=== PATIENT | female | born 1995 | race Caucasian/White ===

== ENCOUNTER → 2022-06-16 09:40 | Outpatient (BNVA) | payer OTHER, SELFPAY | PROVIDERS: Family Provider Counselor Professional; Visit Provider Nurse Practitioner Women's Health | DX: Z32.00 Encounter for pregnancy test, result unknown (principal); Z34.90 Encounter for supervision of normal pregnancy, unspecified, unspecified trimester; Z3A.00 Weeks of gestation of pregnancy not specified | CPT/HCPCS: 80307; 81025; 84315; 87086 ==

== ENCOUNTER → 2022-06-30 13:45 | Outpatient (BNVA) | payer OTHER, BC, SELFPAY | PROVIDERS: Family Provider Counselor Professional; Visit Provider Obstetrics & Gynecology | DX: Z34.00 Encounter for supervision of normal first pregnancy, unspecified trimester (principal); Z3A.00 Weeks of gestation of pregnancy not specified | CPT/HCPCS: 80307; 84315; 87086 ==

== ENCOUNTER 2022-07-01 12:26 | Outpatient (CLI) | payer OTHER, BC, SELFPAY ==
[2022-07-01 13:47] LABS: Hematocrit 41.6 % (37.0-47.0); Hemoglobin 13.8 g/dL (11.5-15.3); Mean Corpuscular HGB Conc 33.2 g/dL (30.0-36.0); Mean Corpuscular Hemoglobin 29.7 pg (28.0-34.0); Mean Corpuscular Volume 89.5 fl (81-99); Mean Platelet Volume 11.1 fL (7.4-10.4); Platelet Count 356 10^3/cmm (130-400); Red Blood Count 4.65 10^6/uL (4.1-5.3); White Blood Count 11.8 10^3/uL (4.0-10.0)
[2022-07-01 14:24] LABS: Rubella IgG 238.8 IU/mL (0.0-10.0); Thyroid Stimulating Hormone 0.21 uIU/mL (0.27-4.20)
[2022-07-01 14:26] LABS: Hepatitis C Virus Antibody Non-Reactive (Nonreactive)
[2022-07-01 14:27] LABS: Hepatitis B Surface Antigen Non-Reactive (Nonreactive)
[2022-07-01 14:30] LABS: HIV 1 & 2 Antibody Non-Reactive (Non-Reactiv); HIV 1 & 2 Antigen Non-Reactive (Non-Reactiv)
[2022-07-01 14:32] LABS: Rapid Plasma Reagin Syphilis Nonreactive (Nonreactive)
== END 2022-07-01 12:27 | disposition home or self-care (01) ==
LOC: LAB 12:30
PROVIDERS: PCP Nurse Practitioner Women's Health; Visit Provider Nurse Practitioner Women's Health
DX: Z34.00 Encounter for supervision of normal first pregnancy, unspecified trimester (principal)
CPT/HCPCS: 36415; 84443; 85027; 86592; 86762; 86803; 86850; 86900; 87340; 87806

== ENCOUNTER → 2022-07-14 09:11 | Outpatient (BNVA) | payer OTHER, SELFPAY | PROVIDERS: Family Provider Counselor Professional; Visit Provider Obstetrics & Gynecology | DX: Z34.90 Encounter for supervision of normal pregnancy, unspecified, unspecified trimester (principal) | CPT/HCPCS: 84315; 84443; 87491; 87591; 87624; 87661 ==

== ENCOUNTER 2022-07-15 12:49 | Outpatient (CLI) | payer OTHER, SELFPAY ==
[2022-08-14 15:15] LABS: WHC Cystic Fibrosis NEGATIVE
== END 2022-07-15 12:50 | disposition home or self-care (01) ==
PROVIDERS: Visit Provider Obstetrics & Gynecology
DX: Z34.00 Encounter for supervision of normal first pregnancy, unspecified trimester (principal); Z3A.00 Weeks of gestation of pregnancy not specified
CPT/HCPCS: 36415

== ENCOUNTER 2022-10-04 11:09 | Outpatient (CLI) | payer OTHER, SELFPAY ==
[2022-10-04] VITALS (14 sets, daily range): BP systolic 107–142; BP diastolic 62–93; PULSE 74–99; RESP 16; TEMP 35.2–36.6; BMI 26.6
[2022-10-04 12:23] LABS: Basophils % 0.3 %; Eosinophils % 0.3 %; Hematocrit 38.5 % (37.0-47.0); Hemoglobin 12.4 g/dL (11.5-15.3); Lymphocytes # 1.7 10^3/uL (0.8-4.8); Lymphocytes % 17.8 %; Mean Corpuscular HGB Conc 32.2 g/dL (30.0-36.0); Mean Platelet Volume 11.4 fL (7.4-10.4); Monocytes # 0.5 10^3/uL (0.2-0.9); Monocytes % 5.6 %; Neutrophils # 7.13 10^3/uL (1.8-7.7); Neutrophils % 75.7 %; Nucleated Red Blood Cells % 0 %; Platelet Count 318 10^3/cmm (130-400); Red Blood Count 4.28 10^6/uL (4.1-5.3); Red Cell Distribution Width 12.5 % (12.1-15.1); White Blood Count 9.4 10^3/uL (4.0-10.0)
[2022-10-04] MEDS: lactated ringers 1,000 ML 999 ML IV (12:25)
[2022-10-04 12:31] LABS: Bilirubin Urine Neg (Negative); Blood Urine Neg (Negative); Glucose Urine UA Norm (Normal); Ketones Urine Negative (Negative); Leukocyte Esterase Urine Negative (Negative); Nitrate Urine Negative (Negative); Protein Urine Neg (Negative); Urine Appearance SL Hazy (CLEAR); Urine Color Yellow (Yellow); Urobilinogen Urine Norm (Negative); pH Urine 7 (5-7)
[2022-10-04 12:32] LABS: Squamous Epithelial Cell Urine 0-4 /hpf (0-5)
[2022-10-04 12:33] LABS: Amorphous Sediment Urine 2+ /hpf; Bacteria Urine 1+ /hpf
[2022-10-04 12:34] LABS: Add Urine Culture? No; Mucus Urine 1+ /hpf
[2022-10-04 12:41] LABS: Alanine Aminotransferase < 5 U/L (0-33); Albumin Level 3.5 g/dL (3.5-5.2); Alkaline Phosphatase 91 U/L (35-105); Anion Gap 13.3 (5-19); Aspartate Amino Transferase 11 U/L (0-32); Blood Urea Nitrogen 6 mg/dL (6-20); Calcium 8.4 mg/dL (8.5-10.5); Carbon Dioxide 21 mmol/L (22-29); Chloride 106 mmol/L (98-107); Globulin 3.1 g/dL (1.3-4.6); Glomerular Filtration Rate 151.6 mL/min (90-130); Glucose 86 mg/dL (65-115); Osmolality Calculated 279 mOsm/kg (285-295); Potassium 4.3 mmol/L (3.5-5.1); Sodium 136 mmol/L (136-145); Total Bilirubin 0.2 mg/dL (0.15-1.2); Total Protein 6.6 g/dL (6.6-8.7)
== END 2022-10-04 13:30 | disposition home or self-care (01) ==
LOC: OPOB 11:13 → OBGYN 11:16
PROVIDERS: Obstetrics & Gynecology; Visit Provider Obstetrics & Gynecology
DX: O26.899 Other specified pregnancy related conditions, unspecified trimester (principal); Z3A.00 Weeks of gestation of pregnancy not specified; R10.9 Unspecified abdominal pain
CPT/HCPCS: 36415; 59025; 80053; 81001; 85025; 99211; J7120

== ENCOUNTER → 2022-11-17 11:40 | Outpatient (BNVA) | payer OTHER, SELFPAY | PROVIDERS: Visit Provider Obstetrics & Gynecology | DX: O09.899 Supervision of other high risk pregnancies, unspecified trimester (principal); Z3A.00 Weeks of gestation of pregnancy not specified | CPT/HCPCS: 82950; 84315; 85025 ==

== ENCOUNTER 2022-12-17 07:32 | Outpatient (CLI) | payer OTHER, BC, SELFPAY ==
[2022-12-17] VITALS (10 sets, daily range): BP systolic 116–164; BP diastolic 70–104; PULSE 60–86; RESP 17; TEMP 36.4; BMI 27.9
[2022-12-17 08:48] LABS: Add Urine Microscopic? NO; Charge for UA Resulting for Rev
[2022-12-17 08:51] LABS: Bilirubin Urine Neg (Negative); Blood Urine Neg (Negative); Glucose Urine UA Norm (Normal); Ketones Urine Negative (Negative); Leukocyte Esterase Urine Negative (Negative); Nitrate Urine Negative (Negative); Protein Urine Neg (Negative); Urine Appearance Clear (CLEAR); Urine Color Light yellow (Yellow); Urobilinogen Urine Norm (Negative); pH Urine 7 (5-7)
[2022-12-17 09:02] LABS: Basophils % 0.4 %; Eosinophils # 0.1 10^3/uL (0.0-0.8); Eosinophils % 0.6 %; Lymphocytes % 18.4 %; Mean Corpuscular HGB Conc 32.7 g/dL (30-55); Mean Corpuscular Hemoglobin 28.8 pg (27-33); Mean Corpuscular Volume 88.1 fl (85-98); Mean Platelet Volume 11.7 fL (7.4-10.4); Monocytes # 0.7 10^3/uL (0.2-0.9); Neutrophils # 8.25 10^3/uL (1.8-7.7); Neutrophils % 74.4 %; Nucleated Red Blood Cells % 0 %; Platelet Count 313 10^3/cmm (157-399); Red Cell Distribution Width 12.5 % (12.1-15.1); White Blood Count 11.08 10^3/uL (3.29-11.43)
[2022-12-17 09:26] LABS: Urine Creatinine 34 mg/dL (28-217); Urine Protein Random 4 mg/dL
[2022-12-17 09:27] LABS: UPRO/UCREAT Ratio 0.12 mg/mg CR
[2022-12-17 09:34] LABS: Alanine Aminotransferase 11 U/L (0-33); Albumin Level 3.4 g/dL (3.5-5.2); Alkaline Phosphatase 163 U/L (35-105); Anion Gap 16.8 (5-19); Aspartate Amino Transferase 18 U/L (0-32); Blood Urea Nitrogen 5 mg/dL (6-20); Calcium 8.9 mg/dL (8.5-10.5); Carbon Dioxide 21 mmol/L (22-29); Chloride 103 mmol/L (98-107); Globulin 3.1 g/dL (1.3-4.6); Glomerular Filtration Rate 121.8 mL/min (90-130); Glucose 84 mg/dL (65-115); Osmolality Calculated 278 mOsm/kg (285-295); Potassium 4.8 mmol/L (3.5-5.1); Sodium 136 mmol/L (136-145); Total Bilirubin 0.2 mg/dL (0.15-1.2); Total Protein 6.5 g/dL (6.6-8.7); Uric Acid 4.8 mg/dL (2.4-5.7)
== END 2022-12-17 10:10 | disposition home or self-care (01) ==
LOC: OPOB 07:43 → OBGYN 07:44
PROVIDERS: Visit Provider Obstetrics & Gynecology
DX: O16.9 Unspecified maternal hypertension, unspecified trimester (principal); Z3A.00 Weeks of gestation of pregnancy not specified
CPT/HCPCS: 36415; 59025; 80053; 81003; 82570; 84156; 84550; 85025; 99211

== ENCOUNTER 2022-12-18 12:36 | Outpatient (CLI) | payer OTHER, BC, SELFPAY ==
[2022-12-18 13:14] LABS: Total Volume, Urine 4500 mL
== END 2022-12-18 12:37 | disposition home or self-care (01) ==
PROVIDERS: PCP Obstetrics & Gynecology; Visit Provider Obstetrics & Gynecology
DX: O16.9 Unspecified maternal hypertension, unspecified trimester (principal); Z3A.00 Weeks of gestation of pregnancy not specified
CPT/HCPCS: 84156

== ENCOUNTER 2022-12-29 11:05 | Outpatient (CLI) | payer OTHER, BC, SELFPAY ==
[2022-12-17 07:45] VITALS: RESP 17; TEMP 36.4
[2022-12-29] VITALS (13 sets, daily range): BP systolic 125–140; BP diastolic 81–100; PULSE 83–100; RESP 16; BMI 27.6
== END 2022-12-29 14:20 | disposition home or self-care (01) ==
LOC: OPOB 11:07 → OBGYN 14:10
PROVIDERS: Visit Provider Obstetrics & Gynecology
DX: O26.899 Other specified pregnancy related conditions, unspecified trimester (principal); Z3A.00 Weeks of gestation of pregnancy not specified
CPT/HCPCS: 59025; 84315; 87081; 99211

== ENCOUNTER → 2023-01-07 14:23 | Outpatient (BNVA) | payer OTHER, BC, SELFPAY | PROVIDERS: Visit Provider Obstetrics & Gynecology | DX: Z34.93 Encounter for supervision of normal pregnancy, unspecified, third trimester (principal); Z3A.37 37 weeks gestation of pregnancy | CPT/HCPCS: 76816 ==

== ENCOUNTER 2023-01-08 08:45 | Outpatient (CLI) | payer OTHER, BC, SELFPAY ==
[2023-01-08] VITALS (9 sets, daily range): BP systolic 115–135; BP diastolic 72–101; PULSE 80–91; RESP 16; BMI 27.9
[2023-01-08] MEDS: lactated ringers 1,000 ML 999 ML IV (09:36)
[2023-01-08 09:44] LABS: Basophils # 0.1 10^3/uL (0.0-0.1); Basophils % 0.6 %; Eosinophils # 0.1 10^3/uL (0.0-0.8); Eosinophils % 0.5 %; Hematocrit 39.4 % (36-47); Lymphocytes # 2.5 10^3/uL (0.8-4.8); Lymphocytes % 20.7 %; Mean Corpuscular HGB Conc 32.5 g/dL (30-55); Mean Corpuscular Hemoglobin 28.7 pg (27-33); Mean Corpuscular Volume 88.3 fl (85-98); Mean Platelet Volume 12.3 fL (7.4-10.4); Monocytes # 0.7 10^3/uL (0.2-0.9); Neutrophils # 8.67 10^3/uL (1.8-7.7); Neutrophils % 71.9 %; Nucleated Red Blood Cells % 0 %; Platelet Count 294 10^3/cmm (157-399); Red Blood Count 4.46 10^6/uL (3.85-5.65); Red Cell Distribution Width 12.8 % (12.1-15.1); White Blood Count 12.06 10^3/uL (3.29-11.43)
[2023-01-08 09:53] LABS: Bilirubin Urine Neg (Negative); Blood Urine Neg (Negative); Glucose Urine UA Norm (Normal); Ketones Urine Negative (Negative); Leukocyte Esterase Urine Negative (Negative); Nitrate Urine Negative (Negative); Protein Urine Neg (Negative); Urine Appearance Clear (CLEAR); Urine Color Colorless (Yellow); Urobilinogen Urine Norm (Negative); pH Urine 7 (5-7)
[2023-01-08 10:02] LABS: Alanine Aminotransferase 9 U/L (0-33); Albumin Level 3.8 g/dL (3.5-5.2); Alkaline Phosphatase 237 U/L (35-105); Anion Gap 18.1 (5-19); Aspartate Amino Transferase 14 U/L (0-32); Blood Urea Nitrogen 7 mg/dL (6-20); Carbon Dioxide 20 mmol/L (22-29); Chloride 104 mmol/L (98-107); Globulin 3.5 g/dL (1.3-4.6); Glucose 91 mg/dL (65-115); Osmolality Calculated 284 mOsm/kg (285-295); Potassium 4.1 mmol/L (3.5-5.1); Sodium 138 mmol/L (136-145); Total Bilirubin 0.3 mg/dL (0.15-1.2); Total Protein 7.3 g/dL (6.6-8.7); Uric Acid 5.4 mg/dL (2.4-5.7)
[2023-01-08 10:08] LABS: Add Urine Culture? No; Bacteria Urine 1+ /hpf; RBC Urine 0-4 /hpf (0-2); WBC Urine 0-4 /hpf (0-5)
[2023-01-08 10:09] LABS: Urine Creatinine 29 mg/dL (28-217)
[2023-01-08 10:15] LABS: UPRO/UCREAT Ratio 0.76 mg/mg CR; Urine Protein Random 22 mg/dL
== END 2023-01-08 10:58 | disposition home or self-care (01) ==
LOC: OPOB 08:48 → OBGYN 10:45
PROVIDERS: Visit Provider Obstetrics & Gynecology
DX: O16.9 Unspecified maternal hypertension, unspecified trimester (principal); Z3A.00 Weeks of gestation of pregnancy not specified
CPT/HCPCS: 36415; 59025; 80053; 81001; 82570; 84156; 84550; 85025; 99211; J7120

== ENCOUNTER 2023-01-10 12:35 | Outpatient (CLI) | payer OTHER, BC, SELFPAY ==
[2023-01-10 12:55] VITALS: BP 136/87; PULSE 85
[2023-01-10 12:59] VITALS: RESP 17
[2023-01-10 13:01] VITALS: BMI 27.9
[2023-01-10 13:05] LABS: Nitrazine Paper, PH Negative
[2023-01-10 13:10] VITALS: BP 131/90; PULSE 79
[2023-01-10 13:25] VITALS: BP 120/91; PULSE 90
== END 2023-01-10 13:30 | disposition home or self-care (01) ==
LOC: OPOB 12:40 → OBGYN 12:41
PROVIDERS: Visit Provider Obstetrics & Gynecology
DX: O26.899 Other specified pregnancy related conditions, unspecified trimester (principal); Z3A.00 Weeks of gestation of pregnancy not specified; N89.8 Other specified noninflammatory disorders of vagina
CPT/HCPCS: 59025; 83986; 99211

== ENCOUNTER 2023-01-15 19:00 | Inpatient (IN) | payer OTHER, BC, MEDICAID, SELFPAY ==
[2023-01-15] VITALS (63 sets, daily range): BP systolic 86–171; BP diastolic 51–113; PULSE 77–117; RESP 16; TEMP 35.9–36.6; O2SAT 97–99; BMI 27.1
[2023-01-15 11:20] LABS: Basophils # 0.1 10^3/uL (0.0-0.1); Basophils % 0.3 %; Eosinophils # 0.1 10^3/uL (0.0-0.8); Eosinophils % 0.4 %; Hematocrit 38.2 % (36-47); Lymphocytes # 1.9 10^3/uL (0.8-4.8); Lymphocytes % 11.5 %; Mean Corpuscular HGB Conc 32.7 g/dL (30-55); Mean Corpuscular Hemoglobin 28.4 pg (27-33); Mean Corpuscular Volume 86.8 fl (85-98); Monocytes # 0.8 10^3/uL (0.2-0.9); Neutrophils # 13.57 10^3/uL (1.8-7.7); Neutrophils % 82.3 %; Nucleated Red Blood Cells % 0 %; Platelet Count 290 10^3/cmm (157-399); Red Cell Distribution Width 13.1 % (12.1-15.1); White Blood Count 16.48 10^3/uL (3.29-11.43)
[2023-01-15] MEDS: dextrose 5%-lactated ringers 1,000 ML 125 ML IV (11:56)
[2023-01-15] MEDS: ampicillin 2,000 MG in sodium chloride 0.9% (plus) 50 ML 100 MG IV (11:57)
[2023-01-15] MEDS: lactated ringers 1,000 ML 999 ML IV (15:31)
--- NOTE | 2023-01-15 16:22 | ANES.PREANE2 ---
Pre-Anesthetic Assessment Height/Weight: Height 1.65 m Weight 73.936 kg Temp Pulse Resp BP O2 Del Method 96.6 F L 84 16 126/82 Room Air 01/15/23 14:34 01/15/23 15:16 01/15/23 11:13 01/15/23 15:16 01/15/23 11:00 Familial anesthetic complications: None Was Beta Sharon taken within 24 hours: N/A Was Clonidine taken within 24 hours: N/A Social No alcohol and No tobacco Exam alert, oriented x 3, clear to auscultation bilaterally and regular rate & rhythm Airway Submandibular: within normal limits Cervical ROM: within normal limits Mallampati: Class III Dentition: full History/ROS No significant history except as noted and No significant complaints Pulmonary None reported CV/HEM Palpitations (d/t anxiety) None reported Hepatic None reported GI Gastroesophageal Reflux Disease Metabolic None reported Musc/skel Lower Back Pain Neuropsych Anxiety and Depression Anesthetic Plan ASA status: 2 Anesthesia: Anesthesia Evaluation, General and Regional (specify below) (Epidural) Risk of > 500 ml blood loss (7ml/kg in children): No Medications/Allergies Home Medications Medication Instructions Recorded Confirmed Last Taken Type fluoxetine 10 mg capsule 10 mg PO DAILY 05/08/22 01/12/23 12/16/22 09:00 History famotidine 20 mg tablet (Pepcid) 20 mg PO DAILY 11/03/22 01/12/23 12/16/22 09:00 History metoclopramide HCl 5 mg tablet 5 mg PO DAILY 30 days #30 tabs 11/03/22 01/12/23 Unknown Rx (Reglan) ondansetron HCl 4 mg tablet 4 mg PO Q8H PRN nausea and 11/03/22 01/12/23 Unknown Rx vomiting #30 tabs Allergies Allergy/AdvReac Type Severity Reaction Status Date / Time No Known Allergies Allergy Verified 01/12/23 09:58 Current Medications Generic Name Dose Route Start Last Admin Trade Name Freq PRN Reason Stop Dose Admin Dextrose/Lactated Ringer's 1,000 mls @ 125 mls/hr 01/15/23 11:15 01/15/23 11:56 Dextrose 5%-Lactated Ringers IV 125 mls/hr .Q8H JAQUELINE Administration Lactated Ringer's 1,000 mls @ 999 mls/hr 01/15/23 15:20 01/15/23 15:31 Lactated Ringers IV 999 mls/hr .Q1H1M PRN Administration See label comments PFSH Anesthesia Surgical History [place] teeth extracted Family History Grandmother Breast cancer Maternal Hypertension Family/Other Breast cancer Maternal aunts, 3 Grandfather , Maternal Stroke Hypertension Grandfather Diabetes Paternal Grandmother , Paternal Diabetes Mother Hypertension Father Hypertension Denies family history of Cervical cancer Colon cancer Ovarian cancer Uterine cancer Thyroid disease Female Reproductive History : 1 Data Anesthesia 01/15/23 11:01 Short CBC 01/15/23 Range/Units 11:01 WBC 16.48 H (3.29-11.43) 10^3/uL Hgb 12.50 (11.27-16.99) g/dL Hct 38.2 (36-47) % MCV 86.8 (85-98) fl Plt Count 290 (157-399) 10^3/cmm Neut % (Auto) 82.3 % Neut # (Auto) 13.57 H (1.8-7.7) 10^3/uL Blood Bank 01/15/23 11:01 Blood Type A Positive Rho(D) Type Positive Antibody Screen Negative Cardiac Studies: No Data to Display
[2023-01-15] MEDS: ROPivacaine syringe 100 MG/50 ML SYRINGE 10 MG EPIDURAL ×2 (16:53→19:54)
--- NOTE | 2023-01-15 16:57 | ANES.PROC ---
Anesthesia Procedures Procedure/Date: 01/15/23 Epidural: Time Out Performed: Yes Consents Signed: Procedure Consent and NPO Consent Consent: requested by attending/covering physician, from patient, risks and benefits reviewed and patient agrees to proceed Lumbar Level: L3-L4 Epidural position: sitting Epidural procedure: sterile prep of area (betadine), 1% lidocaine to numb the area (3 mLs), neg for paresthesia, test dose given, 1.5% xylocaine 1:200k epi (3 mLs/ 2 mLs), 0.2% Ropivacaine bolus ml (5 mLs), placed PCEA, no systemic response, sterile dressing applied, L.U.D. no apparent complications and 0.2% Ropiavacaine @ mls/hr (13) Additional Comments: HARIS at 6cm, catheter placed to 11 cm
[2023-01-15] MEDS: ampicillin 1,000 MG in sodium chloride 0.9% (plus) 50 ML 100 MG IV ×2 (17:01→21:04)
[2023-01-15] MEDS: alum-mag-hydroxide-sime 30 mL UDC PO (20:55)
[2023-01-15] MEDS: ondansetron 2 mg/ML SDV 2 mL 4 MG IVP (23:00)
[2023-01-15] MEDS: oxytocin 30 UNIT/500 ML BAG 600 UNIT IV (23:49)
[2023-01-15] MEDS: miSOPROStol 200 mcg Tablet 800 MCG PR (23:52)
[2023-01-16] VITALS (19 sets, daily range): BP systolic 113–164; BP diastolic 65–97; PULSE 89–106; RESP 16–17; TEMP 36.7–37.7; O2SAT 97–98
--- NOTE | 2023-01-16 00:27 | PM.DELIVERY ---
Delivery Note: Date of delivery: January 16, 2023 Pre-delivery diagnoses: Term Post-delivery diagnoses: Term delivered Procedure: Spontaneous vaginal delivery Delivering Physician: Jeevan Rocha MD Estimated blood loss (mL): 500 Delivery: The patient was noted to be complete and pushing, so was placed in the dorsal lithotomy position, prepped and draped in the usual sterile fashion for a vaginal delivery. Pt. Noted to have epidural anesthesia. At 2344 the patient delivered a viable term female infant weighing 3405 g with scores of 8 and 9 at one and five minutes, respectively. The vertex was delivered spontaneously over intact perineum. The patient was asked to push and the head delivered spontaneously in the MARIBELL position, over an intact perineum. A nuchal cord was checked and none noted. The anterior shoulder delivered easily and the posterior shoulder followed. The remainder of the infant was easily delivered and the oropharynx and nasopharynx was bulb suctioned. The infant was noted to have spontaneous cry and spontaneous movement of all four extremities. The cord was clamped x 2 and cut and noted to have 2 arteries and one vein. The was passed to the mother's abdomen where nursing personnel were in attendance. Cord blood sample was then obtained. The placenta delivered intact spontaneously and the uterus was explored. 20 units of Pitocin was placed in the IV bag to firm the uterus. Examination of the cervix and vaginal vault did not reveal any lacerations. A vaginal pack was then placed. Examination of the perineum showed a second-degree laceration. The laceration was repaired with 3-0 Vicryl in the normal fashion in a running non locking fashion to reapproximate the laceration in layers. The vaginal pack was then removed. The patient tolerated this procedure well, and recovered in L&D with her in the LDR room. All sponge and needle counts were correct. History History History 1 Term 0 Miscarriages/Ectopic Living Children Coding Level of Care Code Acute Code for Chg Fwd Diagnoses
[2023-01-16] MEDS: dextrose 5%-lactated ringers 1,000 ML 125 ML IV (01:10)
[2023-01-16] MEDS: benzocaine-menthol 78 gm Canister 1 SPRAY TOPICAL (01:30)
[2023-01-16] MEDS: HYDROcodone-acetaminophen 5-325 mg Tablet PO (01:34)
[2023-01-16] MEDS: docusate sodium 100 mg Capsule PO ×2 (09:03→20:33)
[2023-01-16] MEDS: prenatal vitamin Capsule 1 CAP PO (09:03)
[2023-01-16] MEDS: ibuprofen 800 mg tablet PO ×3 (09:03→20:33)
--- NOTE | 2023-01-16 09:55 | ANE.PACU2 ---
Inpatient post-anesthesia follow up: Airway intact: Yes Vital signs: Temperature 98.4 F Pulse Rate 100 Respiratory Rate 16 Blood Pressure 123/82 Pulse Oximetry 98 Oxygen Delivery Me thod Room Air Oxygen Flow Rate Fraction of Inspir ed Oxygen Hydration adequate: Yes Nausea and vomiting: No Pain level: 2 Mental status: Baseline Additional Comments: Anes start 01/15/23 1115 Anes end 01/16/23 0102
--- NOTE | 2023-01-16 11:04 | PC.NURSE ---
worked with patient and on waking techniques, was able to wake , assisted patient to position in football hold and attempted to latch infant. Infant did open mouth a few times and breast tissue was introduced into the mouth, no suckles were noted. Patient requested that we attempt a supplemental formula feed due to not latching and being approx. 11 hours of age. Education was provided on formula (use, storage) and bottle feeding techniques. Patient positioned in an upright feeding position and offered infant the bottle nipple. did not open mouth even when encouraged with nose to chin stroke of the nipple. This RN offered to try to feed and patient stated that that would be fine. This RN positioned in upright position and offered the bottle. The infant was gently encouraged to take the nipple into mouth, this RN noted that the infant did not have a wide gape and kept lips pursed, a few swallows were noted at the beginning of the feed but no suckling. This RN withdrew the bottle and reintroduced it several times to try to get infant to latch more deeply with no success. After 15-20 minutes infant did ingest 15 mls of formula, the feeding was ended, burped and placed skin to skin with patient. Dr. Monreal ('s line crew supervisor) was notified of feeding difficulties
[2023-01-16 12:07] LABS: Hematocrit 26.4 % (36-47); Mean Corpuscular HGB Conc 33.3 g/dL (30-55); Mean Corpuscular Hemoglobin 29.2 pg (27-33); Mean Corpuscular Volume 87.7 fl (85-98); Mean Platelet Volume 11.5 fL (7.4-10.4); Platelet Count 213 10^3/cmm (157-399); Red Blood Count 3.01 10^6/uL (3.85-5.65); Red Cell Distribution Width 13.2 % (12.1-15.1); White Blood Count 14.56 10^3/uL (3.29-11.43)
[2023-01-17 04:36] VITALS: BP 121/76; PULSE 83; RESP 17; O2SAT 97
[2023-01-17 07:00] VITALS: BP 120/80; PULSE 85; RESP 18; TEMP 37.3
[2023-01-17] MEDS: docusate sodium 100 mg Capsule PO (09:01)
[2023-01-17] MEDS: prenatal vitamin Capsule 1 CAP PO (09:01)
[2023-01-17] MEDS: ibuprofen 800 mg tablet PO (09:01)
--- NOTE | 2023-01-17 10:06 | P.DS_ITS ---
Discharge Providers SEWER SEPARATION DESIGNER Date of Admission: 01/15/23 19:00 Date of Discharge: 01/17/23 Attending Provider at Admission: Jeevan Rocha MD Attending Provider at Discharge: Jeevan Rocha MD Primary SEWER SEPARATION DESIGNER: Saul Robledo MD Reason for Visit Reason for Visit: Contractions Hospital Course Hospital Course Mrs. Mercado 27-year-old female G1, P1 with an estimated gestational age at 38 weeks +4 days came to labor and delivery in active labor. She progressed to have a spontaneous vaginal delivery over second-degree laceration without complications. She delivered a term female with a birthweight of 3405 g, Apgars 8/9. and observation was uneventful. She is afebrile hemodynamically stable day 1. Tolerating diet well. Ambulating without difficulty. She was counseled regarding pelvic rest for 6 weeks (no sex, no tampons, no vaginal douches). Return to the emergency room if any fever, increased bleeding or pain. Information Peripartum Data: Infant Delivery Method: Vaginal Physical Exam Narrative: GA; alert and oriented x 3 HEENT: normal Breasts: engorged Nipples - skin intact Lungs; clear to auscultation Heart: regular rhythm, no murmurs. Abd: Appropriately tender. BS+. Uterine fundus below umbilicus. No Fundal Tenderness. Perineum: normal lochia. Extremities: no edema, no cyanosis, no tenderness. Urinary Catheter Management: Owen: Cath Placed During This Visit: yes, but has since been removed by the nurse Reason for Continuing Indwelling Catheter: Decision to DC Catheter Urinary Catheter Date of Insertion: 01/15/23 Urinary Catheter Time of Insertion: 17:34 Date Urinary Catheter Removed: 01/15/23 Time Urinary Catheter Discontinued: 23:05 History History History 1 Term 0 Miscarriages/Ectopic Living Children Discharge Data Studies Completed and Pending Laboratory Results WBC 14.56 10^3/uL (3.29-11.43) H 01/16/23 11:59 RBC 3.01 10^6/uL (3.85-5.65) L 01/16/23 11:59 Hgb 8.80 g/dL (11.27-16.99) L 01/16/23 11:59 Hct 26.4 % (36-47) L 01/16/23 11:59 MCV 87.7 fl (85-98) 01/16/23 11:59 MCH 29.2 pg (27-33) 01/16/23 11:59 MCHC 33.3 g/dL (30-55) 01/16/23 11:59 RDW 13.2 % (12.1-15.1) 01/16/23 11:59 Plt Count 213 10^3/cmm (157-399) 01/16/23 11:59 MPV 11.5 fL (7.4-10.4) H 01/16/23 11:59 Neut % (Auto) 82.3 % 01/15/23 11:01 Lymph % (Auto) 11.5 % 01/15/23 11:01 [place] % (Auto) 5.0 % 01/15/23 11:01 Eos % (Auto) 0.4 % 01/15/23 11:01 Baso % (Auto) 0.3 % 01/15/23 11:01 Neut # (Auto) 13.57 10^3/uL (1.8-7.7) H 01/15/23 11:01 Lymph # (Auto) 1.9 10^3/uL (0.8-4.8) 01/15/23 11:01 [place] # (Auto) 0.8 10^3/uL (0.2-0.9) 01/15/23 11:01 Eos # (Auto) 0.1 10^3/uL (0.0-0.8) 01/15/23 11:01 Baso # (Auto) 0.1 10^3/uL (0.0-0.1) 01/15/23 11:01 Nucleated RBC % (auto) 0 % 01/15/23 11:01 Nucleated RBCs # 0.0 /100WBC 01/15/23 11:01 Blood Type A Positive 01/15/23 11:01 Rho(D) Type Positive 01/15/23 11:01 Antibody Screen Negative 01/15/23 11:01 Vitals Last Vital Signs Temp 99.2 F 01/17/23 07:00 Pulse 85 01/17/23 07:00 Resp 18 01/17/23 07:00 BP 120/80 01/17/23 07:00 Pulse Ox 97 01/17/23 04:36 O2 Del Method Room Air 01/17/23 04:36 Results Labs OB ([facility]): Obstetrics US 01/07/23 Blood Type A Positive 01/15/23 Antibody Screen Negative 01/15/23 Hct 26.4 % (36-47) L 01/16/23 Hgb 8.80 g/dL (11.27-16.99) L 01/16/23 Rho(D) Type Positive 01/15/23 Plt Count 213 10^3/cmm (157-399) 01/16/23 Hep Bs Antigen Non-reactive (Nonreactive) 07/01/22 Hepatitis C Antibody Non-reactive (Nonreactive) 07/01/22 Rubella IgG Antibody 238.8 IU/mL (0.0-10.0) H 07/01/22 RPR Nonreactive (Nonreactive) 07/01/22 HIV 1&2 Ab & HIV 1 Ag Non-reactive (Non-Reactiv) 07/01/22 TSH 0.21 uIU/mL (0.27-4.20) L 07/01/22 Cystic Fibrosis Screen Negative 07/15/22 Gest Glucose Tolerance 132 mg/dL (70-139) 11/17/22 Uric Acid 5.4 mg/dL (2.4-5.7) 01/08/23 HCG, Qual Positive (Negative) H 06/16/22 Urine Opiates Screen Negative ng/mL (Negative) 06/30/22 Ur Barbiturates Screen Negative ng/mL (Negative) 06/30/22 Ur Phencyclidine Scrn Negative ng/mL (Negative) 06/30/22 Ur Amphetamines Screen Negative ng/mL (Negative) 06/30/22 U Benzodiazepines Scrn Negative ng/mL (Negative) 06/30/22 Urine Cocaine Screen Negative ng/mL (Negative) 06/30/22 U Marijuana (THC) Screen Negative ng/mL (Negative) 06/30/22 Micro Urine Specimen 06/30/22 Pap Smear Interpret See note 07/14/22 Discharge Plan Discharge Patient Disposition: Home Condition: Stable Prescriptions: New acetaminophen 325 mg capsule 325 mg PO Q4H PRN (Reason: fever or pain) Qty: 60 0RF docusate sodium [Colace] 100 mg capsule 100 mg PO BID Qty: 60 0RF ferrous sulfate [Iron (ferrous sulfate)] 325 mg (65 mg iron) tablet 325 mg PO BID Qty: 60 3RF ibuprofen 800 mg tablet 800 mg PO TID PRN (Reason: pain) Qty: 60 0RF Continued fluoxetine 10 mg capsule 10 mg PO DAILY famotidine [Pepcid] 20 mg tablet 20 mg PO DAILY ondansetron HCl 4 mg tablet 4 mg PO Q8H PRN (Reason: nausea and vomiting) Qty: 30 1RF metoclopramide HCl [Reglan] 5 mg tablet 5 mg PO DAILY 30 Days Qty: 30 0RF Discharge Orders: Discharge Order (Routine); Ordered 01/17/23 Ordered By: Jeevan Rocha Referrals: Jeevan Rocha MD [Physician] - 6 Weeks Discharge Diet: Usual diet Discharge Activity: Limit activity as instructed Patient Instructions: Depression (DC), Bleeding (DC), Preeclampsia and Eclampsia After Delivery (GEN), Hemorrhage (GEN), OB Discharge Report, OB Food/Drug Interaction Guide, OB Care at Home, Opioid Safety, OB Home Care, OB Vaginal Deliveries - [facility] Activity Restrictions/Additional Instructions: 1. Please call [facility] on next working day to make your appointment in 6 weeks. 2. Please stay home until you come back to the clinic on first post- hospatilization check up. 3. Please follow instructions on your medications CAREFULLY. 4. If you have abdominal incision, do not cover it unless dressing is necessary because of drainage. OK to shower, but avoid bath. Leave steri-strips until they fall off. If they are still on one week after surgery, you may remove them. 5. If you had vaginal surgery or vaginal repair, Dr. Rocha may instruct you to take SITZ bath. 6. Yellow, blood tinged odorous vaginal discharge is usually normal after hysterectomy or vaginal surgeries. 7. No SEXUAL INTERCOURSE, tampons, or douches until you are completely released from the post-operative care. 8. Avoid constipation by eating right and maybe using some Metamucil or Milk of Magnesia. 9. All prescription refills are given during the working hours. Please do no wait till it runs out. Call the clinic at [phone] before your medication runs out. The clinic will get in touch with your doctor to prescribe medications if necessary. 10. Please remain within 40 mile radius from our hospital because emergencies do happen now and then during the post-operative period. 11. If you have stairs at home, take one step at a time slowly and minimize the number of trips. It helps to stay in one floor for the next few days. No lifting except what you can lift by one hand until you are released from the post-operative care. 12. Driving is discouraged until you are well healed. It may be 3-4 weeks before you feel strong enough to drive. You should be able to turn and look through the rear window without pain and you should be able to push the brake pedal very hard without pain before you drive. No fast rules, but SAFETY should be your primary concern. DO NOT drive if you are on sedating medications such as narcotics. 13. Call the clinic (during working hours) to make urgent appointment or go to the Emergency room, if any of the following occurs: i. Vaginal bleeding becomes heavy, more than a period. ii. Incision becomes red and sore, or drains pus. iii. Your TEMPERATURE is over 100.4F or you have chill. iv. IV site becomes red and swollen (a little ``knot?? is usually OK) v. Persistent nausea and vomiting vi. Persistent constipation or diarrhea vii. Rash or allergic reaction to medications. Discharge Attestations SEWER SEPARATION DESIGNER Time Spent in Discharge Care*: greater than 30 min Coding Level of Care Code Acute Code for Chg Fwd Diagnoses
[2023-01-17 10:14] VITALS: TEMP 37.2
[2023-01-17 13:15] VITALS: BP 116/77; PULSE 85; RESP 16; TEMP 36.8
[2023-01-17 13:45] VITALS: BP 116/77; PULSE 85; RESP 16; TEMP 36.8
== END 2023-01-17 13:48 | disposition home or self-care (01) | DRG 807 ==
LOC: OPOB 01-16 00:18 → OBGYN 01-16 00:18
PROVIDERS: Admitting Provider Obstetrics & Gynecology; Visit Provider Obstetrics & Gynecology
DX: O70.1 Second degree perineal laceration during delivery (principal); Z37.0 Single live birth; Z3A.38 38 weeks gestation of pregnancy
CPT/HCPCS: 36415; 51702; 59025; 59409; 85025; 85027; 86850; 86900; 96374; 98960; 99211; J0290; J2405; J2590; J2795; J7120; J7121

== ENCOUNTER → 2023-03-10 15:49 | Outpatient (BNVA) | payer OTHER, BC, MEDICAID, SELFPAY | PROVIDERS: Visit Provider Nurse Practitioner | DX: R39.9 Unspecified symptoms and signs involving the genitourinary system (principal) | CPT/HCPCS: 81000 ==

== ENCOUNTER 2023-04-27 23:08 | Emergency (ER) | payer OTHER, BC, MEDICAID, SELFPAY ==
[2023-04-27 23:11] VITALS: BP 179/116; PULSE 113; RESP 17; TEMP 36.6; O2SAT 98; BMI 27.4
--- NOTE | 2023-04-27 23:23 | ECG_ITS ---
[facility] Test Date: 2023-04-27 Pat Name: Meredith Mercado Department: Room: Gender: Female Bioinformatics Associate: : 1995 Requested By: Leo Alcaraz Order Number: [id number] Michael MD: Obi Mccarty M.D. Measurements Intervals Kathryn Rate: 117 P: 70 DC: 172 QRS: 49 QRSD: 89 T: 45 QT: 329 QTc: 460 Interpretive Statements SINUS TACHYCARDIA MODERATE ST DEPRESSION [0.05+ mV ST DEPRESSION] No previous ECG available for comparison Electronically Signed On 04-28-2023 9:56:38 TURFGRASS MANAGEMENT PROFESSOR by Obi Mccarty M.D. [email or web address]
--- NOTE | 2023-04-27 23:23 | CTR_ITS ---
PROCEDURE INFORMATION: Exam: CT Head Without Contrast Exam date and time: 04/28/2023 12:02 AM Age: 27 years old Clinical indication: Pain; Patient HX: Patient says she noticed her vison getting blurry awhile looking at her phone and noticed headache on right side of head. She said she panicked and took her blood pressure which was higher than normal. ; Additional info: Right side headache, HTN, vision changes TECHNIQUE: Imaging protocol: Computed tomography of the head without contrast. Radiation optimization: All CT scans at this facility use at least one of these dose optimization techniques: automated exposure control; mA and/or kV adjustment per patient size (includes targeted exams where dose is matched to clinical indication); or iterative reconstruction. COMPARISON: No relevant prior studies available. RADIATION DOSE METRICS: Total DLP (mGy-cm): 1011 FINDINGS: Brain: Normal. No hemorrhage. Unremarkable white matter. No mass effect. Cerebral ventricles: No ventriculomegaly. Paranasal sinuses: There is mucosal disease of the right maxillary sinus. Mastoid air cells: Visualized mastoid air cells are well aerated. Bones/joints: Unremarkable. No acute fracture. Soft tissues: Unremarkable. CT/CT head wo con* 15210 IMPRESSION: No large territorial infarct or intracranial bleed.
[2023-04-27 23:30] VITALS: BP 165/98; PULSE 105; O2SAT 95
[2023-04-27 23:43] LABS: Basophils # 0.1 10^3/uL (0.0-0.1); Basophils % 0.5 %; Eosinophils # 0.2 10^3/uL (0.0-0.8); Eosinophils % 1.6 %; Hematocrit 41.2 % (36-47); Lymphocytes # 4.3 10^3/uL (0.8-4.8); Lymphocytes % 43.7 %; Mean Corpuscular Hemoglobin 27.4 pg (27-33); Mean Corpuscular Volume 85.7 fl (85-98); Mean Platelet Volume 10.9 fL (7.4-10.4); Monocytes # 0.8 10^3/uL (0.2-0.9); Monocytes % 8.3 %; Neutrophils # 4.47 10^3/uL (1.8-7.7); Neutrophils % 45.7 %; Nucleated Red Blood Cells % 0 %; Platelet Count 454 10^3/cmm (157-399); Red Blood Count 4.81 10^6/uL (3.85-5.65); Red Cell Distribution Width 15.4 % (12.1-15.1); White Blood Count 9.79 10^3/uL (3.29-11.43)
[2023-04-27] MEDS: LORazepam 2 mg/mL INJ 10 mL MDV 1 MG IVP (23:48)
[2023-04-28] VITALS: PULSE 102; O2SAT 92
--- NOTE | 2023-04-28 00:07 | W.ED.RECABL ---
HPI - Recheck/Abnormal Lab/Rx General: Chief Complaint: Recheck/Abnormal Lab/Rx Stated Complaint: bp high Time Seen by Provider: 04/27/23 23:23 History of Present Illness: Patient presents to the ER with complaints of high blood pressure, high heart rate and sudden onset splitting right-sided headache. Patient does states she has anxiety and did not take her anxiety medicine today and her high blood pressure and high heart rates with making this worse and causing her to have a panic attack. Review of Systems General: Reports: 10 or more systems reviewed and unremarkable except in HPI and below PFSH ED PFSH: Surgical History [place] teeth extracted Family History Grandmother Breast cancer Maternal Hypertension Family/Other Breast cancer Maternal aunts, 3 Grandfather , Maternal Stroke Hypertension Grandfather Diabetes Paternal Grandmother , Paternal Diabetes Mother Hypertension Father Hypertension Denies family history of Cervical cancer Colon cancer Ovarian cancer Uterine cancer Thyroid disease Physical Exam Const: COMMON NORMALS: no acute distress, average body habitus, patient oriented x3, no limitations, healthy appearing, alert and well nourished HENMT: COMMON NORMALS: normocephalic, atraumatic, hearing grossly normal bilaterally, external ears normal, moist oral mucous membranes and oropharynx normal HEAD & SCALP: normocephalic and atraumatic EXTERNAL EAR: Yes external ears normal Eye: COMMON NORMALS: Equal, round and reactive pupils present, EOMs intact bilaterally, conjunctivae normal and no scleral icterus CONJUNCTIVA: Yes conjunctivae normal PUPIL: Yes Equal, round and reactive pupils present Neck/C-Spine: COMMON NORMALS: full ROM, no lymphadenopathy, supple, no meningeal signs, no JVD and Thyroid normal THYROID: Thyroid normal Chest: COMMONS NORMALS: normal inspection of the chest and normal palpation of entire chest wall Resp: COMMON NORMALS: normal respiratory effort, No retractions, No use of accessory muscles and clear to auscultation bilaterally AUSCULTATION: clear to auscultation bilaterally Cardio: COMMON NORMALS: no JVD, regular rate, regular rhythm, S1 normal heart sound present, S2 normal heart sound present, No gallops present (Cardio), No clicks present (Cardio), No murmurs present (Cardio) and No rub (Cardio) RATE: regular rate RHYTHM: regular rhythm HEART SOUNDS: S1 normal heart sound present and S2 normal heart sound present GI: COMMON NORMALS: Normal to inspection, nondistended, normoactive bowel sounds present, Soft to palpation, non-tender, No hepatosplenomegaly present and no masses PALPATION: Yes Soft to palpation and Yes No hepatosplenomegaly present Neuro: COMMON NORMALS: patient oriented x3 SENSORIUM/ORIENTATION: Yes alert MENINGEAL SIGNS: Yes no meningeal signs Course Vital Signs: Vital signs: Vital Signs Temperature 97.9 F 04/27/23 23:11 Pulse Rate 93 04/28/23 01:20 Respiratory Rate 17 04/27/23 23:11 Blood Pressure 135/86 04/28/23 01:20 Pulse Oximetry 97 04/28/23 01:20 Oxygen Delivery Me thod Room Air 04/28/23 01:20 MDM - Recheck/Abnormal Lab/Rx Medical Decision Making Patient physical exam and lab work performed in ER as well as head CT all of which were essentially benign. During the patient's ER stay she was given 1 mg Ativan IV which calm her down which lowered her blood pressure and her heart rate. Patient was feeling much better. Patient will be discharged home. Patient is to follow-up with her PCP for further evaluation within 7 to 10 days. Differential Diagnosis Unlikely encounter for medication refill, encounter for wound recheck, encounter for recheck of burn, encounter for removal of sutures or warfarin-induced coagulopathy Medical Records I reviewed the patient's medical records. Lab Data I reviewed the patient's lab results. 04/27/23 23:19 04/27/23 00:[address] 04/27/23 23:23 IMPRESSION: No large territorial infarct or intracranial bleed. Laboratory Results WBC 9.79 10^3/uL (3.29-11.43) 04/27/23 23:19 RBC 4.81 10^6/uL (3.85-5.65) 04/27/23 23:19 Hgb 13.20 g/dL (11.27-16.99) 04/27/23 23:19 Hct 41.2 % (36-47) 04/27/23 23:19 MCV 85.7 fl (85-98) 04/27/23 23:19 MCH 27.4 pg (27-33) 04/27/23 23:19 MCHC 32.0 g/dL (30-55) 04/27/23 23:19 RDW 15.4 % (12.1-15.1) H 04/27/23 23:19 Plt Count 454 10^3/cmm (157-399) H 04/27/23 23:19 MPV 10.9 fL (7.4-10.4) H 04/27/23 23:19 Neut % (Auto) 45.7 % 04/27/23 23:19 Lymph % (Auto) 43.7 % 04/27/23 23:19 [place] % (Auto) 8.3 % 04/27/23 23:19 Eos % (Auto) 1.6 % 04/27/23 23:19 Baso % (Auto) 0.5 % 04/27/23 23:19 Neut # (Auto) 4.47 10^3/uL (1.8-7.7) 04/27/23 23:19 Lymph # (Auto) 4.3 10^3/uL (0.8-4.8) 04/27/23 23:19 [place] # (Auto) 0.8 10^3/uL (0.2-0.9) 04/27/23 23:19 Eos # (Auto) 0.2 10^3/uL (0.0-0.8) 04/27/23 23:19 Baso # (Auto) 0.1 10^3/uL (0.0-0.1) 04/27/23 23:19 Nucleated RBC % (auto) 0 % 04/27/23 23:19 Nucleated RBCs # 0.0 /100WBC 04/27/23 23:19 Sodium 143 mmol/L (136-145) 04/27/23 00:19 Potassium 3.6 mmol/L (3.5-5.1) 04/27/23 00:19 Chloride 108 mmol/L (98-107) H 04/27/23 00:19 Carbon Dioxide 24 mmol/L (22-29) 04/27/23 00:19 Anion Gap 14.6 (5-19) 04/27/23 00:19 BUN 10 mg/dL (6-20) 04/27/23 00:19 Creatinine 0.7 mg/dL (0.5-0.9) 04/27/23 00:19 GFR Calculation 102.0 mL/min (90-130) 04/27/23 00:19 Glucose 125 mg/dL (65-115) H 04/27/23 00:19 Calculated Osmolality 297 mOsm/kg (285-295) H 04/27/23 00:19 Calcium 9.5 mg/dL (8.5-10.5) 04/27/23 00:19 Total Bilirubin 0.2 mg/dL (0.15-1.2) 04/27/23 00:19 AST 14 U/L (0-32) 04/27/23 00:19 ALT 13 U/L (0-33) 04/27/23 00:19 Alkaline Phosphatase 121 U/L (35-105) H 04/27/23 00:19 Total Protein 7.0 g/dL (6.6-8.7) 04/27/23 00:19 Albumin 4.0 g/dL (3.5-5.2) 04/27/23 00:19 Globulin 3.0 g/dL (1.3-4.6) 04/27/23 00:19 Urine Color Yellow (Yellow) 04/27/23 23:49 Urine Appearance Sl hazy (CLEAR) A 04/27/23 23:49 Urine pH 7 (5-7) 04/27/23 23:49 Ur Specific [place] 1.010 (1.005-1.030) 04/27/23 23:49 Urine Protein Neg (Negative) 04/27/23 23:49 Urine Glucose (UA) Norm (Normal) 04/27/23 23:49 Urine Ketones Negative (Negative) 04/27/23 23:49 Urine Blood Neg (Negative) 04/27/23 23:49 Urine Nitrate Negative (Negative) 04/27/23 23:49 Urine Bilirubin Neg (Negative) 04/27/23 23:49 Urine Urobilinogen Norm mg/dL (Negative) 04/27/23 23:49 Ur Leukocyte Esterase 2+ (Negative) H 04/27/23 23:49 Urine RBC None /hpf (0-2) 04/27/23 23:49 Urine WBC 5-10 /hpf (0-5) H 04/27/23 23:49 Ur Squamous Epith Cells 15-25 /hpf (0-5) H 04/27/23 23:49 Amorphous Sediment Not Reportable 04/27/23 23:49 Urine Bacteria 1+ /hpf (NONE) H 04/27/23 23:49 Urine Opiates Screen Negative ng/mL (Negative) 04/27/23 23:49 Ur Barbiturates Screen Negative ng/mL (Negative) 04/27/23 23:49 Ur Phencyclidine Scrn Negative ng/mL (Negative) 04/27/23 23:49 Ur Amphetamines Screen Negative ng/mL (Negative) 04/27/23 23:49 U Benzodiazepines Scrn Negative ng/mL (Negative) 04/27/23 23:49 Urine Cocaine Screen Negative ng/mL (Negative) 04/27/23 23:49 U Marijuana (THC) Screen Negative ng/mL (Negative) 04/27/23 23:49 All radiology interpretation(s) finalized by discharge EKG Data EKG 1: I personally reviewed and interpreted this EKG as follows: EKG interpretation date: 04/27/23 EKG interpretation time: 23:20 Prior EKG tracings: not available for review Interpretation: EKG shows ventricular rate 117 bpm, ME interval 172, QRS duration 89, QTc of 398, sinus tachycardia moderate ST depression, Discharge Plan Discharge Patient Disposition: Home Clinical Impression: Anxiety, Tachycardia Headache Qualifiers: Headache type: unspecified Headache chronicity pattern: acute headache Intractability: not intractable Qualified Code(s): R51.9 - Headache, unspecified High blood pressure Qualifiers: Hypertension type: unspecified Qualified Code(s): I10 - Essential (primary) hypertension Condition: Stable Prescriptions: No Action norethindrone-e.estradiol-iron [ ()] 1.5 mg-30 mcg (21)/75 mg (7) tablet 1 tab PO DAILY Qty: 84 4RF fluconazole 150 mg tablet 150 mg PO Q3D Qty: 2 0RF Rx Instructions: may repeat second dose 72 hrs after first dose if symptoms persist fluoxetine 10 mg capsule 10 mg PO DAILY famotidine [Pepcid] 20 mg tablet 20 mg PO DAILY ondansetron HCl 4 mg tablet 4 mg PO Q8H PRN (Reason: nausea and vomiting) Qty: 30 1RF metoclopramide HCl [Reglan] 5 mg tablet 5 mg PO DAILY 30 Days Qty: 30 0RF acetaminophen 325 mg capsule 325 mg PO Q4H PRN (Reason: fever or pain) Qty: 60 0RF ibuprofen 800 mg tablet 800 mg PO TID PRN (Reason: pain) Qty: 60 0RF Colace 100 mg capsule 100 mg PO BID Qty: 60 0RF Iron (ferrous sulfate) 325 mg (65 mg iron) tablet 325 mg PO BID Qty: 60 3RF Discharge Orders: Discharge ED (Routine); Ordered 04/28/23 Ordered By: Leo Alcaraz Patient Instructions: Hypertension, Anxiety (ED), General Headache (ED), Tachycardia (ED) Activity Restrictions/Additional Instructions: Your workup in ER did not show any acute causes of your high blood pressure, tachycardia or headache other than anxiety. Please follow-up with your family practice physician within the next 7 to 10 days for further evaluation and treatment. 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
[2023-04-28 00:08] LABS: Add Urine Microscopic? YES; Amphetamines Screen Urine Negative (Negative); Barbiturates Screen Urine Negative (Negative); Benzodiazepines Screen Urine Negative (Negative); Bilirubin Urine Neg (Negative); Blood Urine Neg (Negative); Cocaine Screen Urine Negative (Negative); Glucose Urine UA Norm (Normal); Ketones Urine Negative (Negative); Leukocyte Esterase Urine 2+ (Negative); Nitrate Urine Negative (Negative); Opiate Screen Urine Negative (Negative); PCP Screen Urine Negative (Negative); Protein Urine Neg (Negative); THC Screen Urine Negative (Negative); Urine Appearance SL Hazy (CLEAR); Urine Color Yellow (Yellow); Urobilinogen Urine Norm (Negative); pH Urine 7 (5-7)
[2023-04-28 00:09] LABS: Add Urine Culture? No; Bacteria Urine 1+ /hpf; Squamous Epithelial Cell Urine 15-25 /hpf (0-5)
[2023-04-28 00:15] VITALS: BP 151/96; PULSE 87; O2SAT 98
[2023-04-28 00:40] LABS: Alanine Aminotransferase 13 U/L (0-33); Alkaline Phosphatase 121 U/L (35-105); Anion Gap 14.6 (5-19); Aspartate Amino Transferase 14 U/L (0-32); Blood Urea Nitrogen 10 mg/dL (6-20); Calcium 9.5 mg/dL (8.5-10.5); Carbon Dioxide 24 mmol/L (22-29); Chloride 108 mmol/L (98-107); Creatinine Clr Calc Pharmacy 124.3931; Glucose 125 mg/dL (65-115); Osmolality Calculated 297 mOsm/kg (285-295); Potassium 3.6 mmol/L (3.5-5.1); Sodium 143 mmol/L (136-145); Total Bilirubin 0.2 mg/dL (0.15-1.2)
[2023-04-28 01:00] VITALS: BP 134/86; PULSE 99; O2SAT 99
[2023-04-28 01:20] VITALS: BP 135/86; PULSE 93; O2SAT 97
== END 2023-04-28 01:39 | disposition home or self-care (01) ==
PROVIDERS: Emergency Provider Emergency Medicine
DX: I10 Essential (primary) hypertension (principal); R51.9 Headache, unspecified; F41.9 Anxiety disorder, unspecified; R00.0 Tachycardia, unspecified
CPT/HCPCS: 70450; 80053; 80306; 81001; 81003; 85025; 93005; 96374; 99285; J2060

== ENCOUNTER 2023-09-07 06:35 | Outpatient (CLI) | payer BC, MEDICAID, SELFPAY ==
--- NOTE | 2023-09-07 06:40 | US_ITS ---
WS: [id number] EARLY OBSTETRICAL ULTRASOUND (<14 WEEKS). HISTORY: Dating COMPARISON: None available. Single intrauterine gestational sac is identified. Only transabdominal imaging and measurement of the fetus submitted. Cardiac activity at 152 BPM. [place]-rump length measures 7.6 cm which corresponds to a gestation of 13w5d. Normal-appearing yolk sac and amnion demonstrated. No subchorionic hemorrhag e. No free fluid. RIGHT ovary is not visualized. There is a small corpus luteum in the LEFT ovary measuring 2.4 x 2.4 x 1.8 cm. US/US OB <= 14 weeks fetus [id number] IMPRESSION: 1. Single intrauterine gestation of 13w5d with an EDC of 03/09/2024. 2. Normal heart rate.
== END 2023-09-07 06:36 | disposition home or self-care (01) ==
LOC: RAD 06:35
PROVIDERS: Visit Provider Family Medicine
DX: Z34.81 Encounter for supervision of other normal pregnancy, first trimester (principal)
CPT/HCPCS: 76801

== ENCOUNTER 2023-10-19 11:08 | Outpatient (CLI) | payer BC, MEDICAID, SELFPAY ==
--- NOTE | 2023-10-19 11:13 | USR_ITS ---
PROCEDURE INFORMATION: Exam: US After First Trimester, Transabdominal Exam date and time: 10/19/2023 11:25 AM Age: 27 years old Clinical indication: Screening exam; Routine US, uterus; Additional info: Anatomy TECHNIQUE: Imaging protocol: Real-time transabdominal obstetrical ultrasound of the maternal pelvis and a second or third trimester with image documentation. COMPARISON: US OB <= 14 weeks fetus [id number] 09/07/2023 6:46 AM FINDINGS: Gestation: Single live intrauterine gestation. heart rate: 159 bpm presentation and position: Vertex presentation. Placenta: Unremarkable. No subchorionic bleed. Placenta is posterior. Amniotic fluid (Qualitative): Amniotic fluid is normal for gestational age. Amniotic fluid index: Normal. ANATOMY: midline falx: Normal. cerebellum: Normal. lateral ventricles: Normal. cisterna magna: Normal. choroid plexus: Normal. face: Upper lip is Normal. heart four-chamber view, heart size and position: Normal. heart right ventricular outflow tract: Normal. heart left ventricular outflow tract: Normal. kidneys: Normal. stomach: Normal. urinary bladder: Normal. spine: Normal. Umbilical cord and insertion: Normal. upper limbs: Normal. lower limbs: Normal. external genitalia: Normal. BIOMETRY: Gestational age (AUA): 19 weeks 2 days Estimated due date (AUA): March 12, 2024. Estimated weight: 284.84 g. EFW by AC, BPD, FL, HC, Hadlock 1985 Biparietal diameter (BPD): 4.54 cm. EGA (BPD) is 19 w 5 d. 69.2 % percentile Head circumference (HC): 16.82 cm. EGA (HC) is 19 w 3 d. 51.7 % percentile Abdominal circumference (AC): 13.89 cm. EGA (AC) is 19 w 2 d. 45.6 % percentile Femur length (FL): 2.99 cm. EGA (FL) is 19 w 2 d. 40.7 % percentile HC/AC: 1.21. (Normal range: 1.09 - 1.26) FL/HC: 17.78. (Normal range: 16.3 - 18.73) FL/BPD: 65.86 FL/AC: 21.53 MATERNAL: Uterus: Unremarkable. Cervix: Unremarkable. Cervix is closed. Right ovary/adnexa: Obscured by lack of adequate acoustic window. Left ovary/adnexa: Obscured by lack of adequate acoustic window. Intraperitoneal space: No intraperitoneal free fluid. US/US OB >= 14 weeks fetus [id number] IMPRESSION: A single intrauterine is visualized with estimated gestational age of approximately 19 weeks 2 days. Normal anatomy. Vertex presentation. Placenta is posterior.
== END 2023-10-19 11:09 | disposition home or self-care (01) ==
LOC: RAD 11:08
PROVIDERS: Visit Provider Family Medicine
DX: Z34.82 Encounter for supervision of other normal pregnancy, second trimester (principal); Z3A.19 19 weeks gestation of pregnancy
CPT/HCPCS: 76805

== ENCOUNTER 2024-01-15 15:50 | Outpatient (CLI) | payer BC, MEDICAID, SELFPAY ==
--- NOTE | 2024-01-15 15:54 | USR_ITS ---
PROCEDURE INFORMATION: Exam: US , Follow up Exam date and time: 01/15/2024 4:02 PM Age: 28 years old Clinical indication: Screening exam; Routine US, uterus; Additional info: Impaired glucose tolerance in , growth check LABS AND CLINICAL REPORTS: Gestational age (Established): 31 w 6 d Estimated due date (Established): 03/12/2024 TECHNIQUE: Imaging protocol: Transabdominal ultrasound of the uterus, real time with image documentation. Follow-up (eg, re-evaluation of size by measuring standard growth parameters and amniotic fluid volume, re-evaluation of organ system(s) suspected or confirmed to be abnormal on a previous scan). COMPARISON: US OB >= 14 weeks fetus [id number] 10/19/2023 11:25 AM FINDINGS: Gestation: Single, viable intrauterine gestation. heart rate: 153 bpm presentation and position: The fetus is in cephalic presentation. Amniotic fluid (Qualitative): Normal amount of amniotic fluid with maximum vertical pocket of 5.2 cm. BIOMETRY: Estimated weight: 1829.23 g 35.0% percentile. There has been interval growth of the fetus. EFW by AC, BPD, FL, HC, [place]lock 1985 Biparietal diameter (BPD): 7.96 cm. EGA (BPD) is 32 w 0 d. 43.5 % percentile Head circumference (HC): 29.44 cm. EGA (HC) is 32 w 4 d. 29.5 % percentile Abdominal circumference (AC): 26.76 cm. EGA (AC) is 30 w 6 d. 20.6 % percentile Femur length (FL): 6.36 cm. EGA (FL) is 32 w 6 d. 65.3 % percentile HC/AC: 1.1. (Normal range: 0.96 - 1.14) FL/HC: 21.6. (Normal range: 19.21 - 21.33) FL/BPD: 79.9. (Normal range: 71 - 87) FL/AC: 23.77. (Normal range: 20 - 24) MATERNAL: Cervix: Cervical length measures 4 cm. The cervix is unremarkable. There is no shortening or effacement. The cervix measures 4.0 cm using a transabdominal measurement. [place] [id number] IMPRESSION: Single, viable intrauterine gestation. Estimated gestational age of 32 weeks 1 day by the current ultrasound. Estimated delivery date by the current ultrasound is 03/10/2024. There has been interval growth of the fetus.
== END 2024-01-15 15:51 | disposition home or self-care (01) ==
LOC: RAD 15:51
PROVIDERS: PCP Family Medicine; Visit Provider Family Medicine
DX: O99.810 Abnormal glucose complicating pregnancy (principal)
CPT/HCPCS: 76816

== ENCOUNTER 2024-01-18 14:46 | Outpatient (CLI) | payer BC, MEDICAID, SELFPAY ==
[2024-01-18] VITALS (9 sets, daily range): BP systolic 120–147; BP diastolic 70–91; PULSE 76–110; RESP 18; TEMP 35.3; BMI 27.1
[2024-01-18 16:58] LABS: Bilirubin Urine Negative (Negative); Blood Urine Negative (Negative); Glucose Urine UA Negative (Normal); Ketones Urine Negative (Negative); Leukocyte Esterase Urine 2+ (Negative); Nitrate Urine Negative (Negative); Protein Urine Negative (Negative); Specific Gravity, Urine 1.016 (1.005-1.030); Urine Appearance Clear (CLEAR); Urine Color Yellow (Yellow)
[2024-01-18 17:11] LABS: Bacteria Urine 1+ /hpf; Squamous Epithelial Cell Urine 0-4 /hpf (0-5)
== END 2024-01-18 17:39 | disposition home or self-care (01) ==
LOC: OPOB 14:51 → OBGYN 14:52
PROVIDERS: PCP Family Medicine; Visit Provider Family Medicine
DX: O26.899 Other specified pregnancy related conditions, unspecified trimester (principal); Z3A.00 Weeks of gestation of pregnancy not specified; R10.9 Unspecified abdominal pain
CPT/HCPCS: 59025; 81001; 99211

== ENCOUNTER 2024-02-09 15:22 | Outpatient (CLI) | payer BC, MEDICAID, SELFPAY ==
--- NOTE | 2024-02-09 15:27 | USR_ITS ---
PROCEDURE INFORMATION: Exam: US , Follow up Exam date and time: 02/09/2024 4:12 PM Age: 28 years old Clinical indication: Screening exam; Routine US, uterus; Additional info: Impaired glucose tolerance in LABS AND CLINICAL REPORTS: Gestational age (Established): 35 w 3 d Estimated due date (Established): 03/12/2024 TECHNIQUE: Imaging protocol: Transabdominal ultrasound of the uterus, real time with image documentation. Follow-up (eg, re-evaluation of size by measuring standard growth parameters and amniotic fluid volume, re-evaluation of organ system(s) suspected or confirmed to be abnormal on a previous scan). COMPARISON: [place] [id number] 01/15/2024 4:02 PM FINDINGS: Gestation: Single live intrauterine gestation. heart rate: 123 bpm. presentation and position: Vertex. Placenta: Posterior. Amniotic fluid (Qualitative): Adequate amount of amniotic fluid. MVP: 4.5 cm. BIOMETRY: Gestational age (AUA): 35 weeks 1 day Estimated due date (AUA): 03/14/2024 Estimated weight: 2588.47 g. EFW by AC, BPD, FL, HC, [place]lock 1985, 38% percentile Biparietal diameter (BPD): 8.67 cm. EGA (BPD) is 35 w 0 d. 41.7 % percentile Head circumference (HC): 31.48 cm. EGA (HC) is 35 w 2 d. 16.4 % percentile Abdominal circumference (AC): 31.04 cm. EGA (AC) is 35 w 0 d. 44.9 % percentile Femur length (FL): 6.86 cm. EGA (FL) is 35 w 2 d. 38.2 % percentile HC/AC: 1.01. (Normal range: 0.93 - 1.11) FL/HC: 21.79. (Normal range: 20.1 - 22.27) FL/BPD: 79.12. (Normal range: 71 - 87) FL/AC: 22.1. (Normal range: 20 - 24) MATERNAL: Cervix: Unremarkable closed cervix measuring 6.1 cm in length. US[place] [id number] IMPRESSION: Single live intrauterine gestation with estimated age of 35 weeks 1 day and weight of 2588.47 g.
== END 2024-02-09 15:23 | disposition home or self-care (01) ==
LOC: RAD 15:23
PROVIDERS: PCP Family Medicine; Visit Provider Family Medicine
DX: Z34.83 Encounter for supervision of other normal pregnancy, third trimester (principal)
CPT/HCPCS: 76816

== ENCOUNTER 2024-02-11 01:07 | Outpatient (CLI) | payer BC, MEDICAID, SELFPAY ==
[2024-02-11] VITALS (10 sets, daily range): BP systolic 112–185; BP diastolic 71–107; PULSE 65–93; RESP 16; TEMP 36.9; O2SAT 98; BMI 28.3
[2024-02-11 02:19] LABS: Bilirubin Urine Negative (Negative); Blood Urine Negative (Negative); Glucose Urine UA Negative (Normal); Ketones Urine Negative (Negative); Leukocyte Esterase Urine 1+ (Negative); Nitrate Urine Negative (Negative); Protein Urine Negative (Negative); Specific Gravity, Urine 1.008 (1.005-1.030); Urine Appearance Clear (CLEAR); Urine Color Yellow (Yellow); Urobilinogen Urine 0.2 mg/dL (Negative)
[2024-02-11 02:24] LABS: Add Urine Microscopic? YES; Bacteria Urine Trace /hpf; RBC Urine 0-2 /hpf (0-2); Squamous Epithelial Cell Urine 0-5 /hpf (0-5); WBC Urine 0-5 /hpf (0-5)
[2024-02-11 02:37] LABS: Urine Creatinine 50 mg/dL (28-217); Urine Protein Random 5 mg/dL
[2024-02-11 03:38] LABS: Basophils # 0.1 10^3/uL (0.0-0.1); Basophils % 0.4 %; Eosinophils % 0.3 %; Hematocrit 37.3 % (36-47); Lymphocytes # 3.3 10^3/uL (0.8-4.8); Lymphocytes % 25.9 %; Mean Corpuscular HGB Conc 30.3 g/dL (30-55); Mean Corpuscular Hemoglobin 23.3 pg (27-33); Mean Corpuscular Volume 76.9 fl (85-98); Mean Platelet Volume 11.6 fL (7.4-10.4); Monocytes # 0.7 10^3/uL (0.2-0.9); Monocytes % 5.7 %; Neutrophils % 67.3 %; Nucleated Red Blood Cells % 0 %; Platelet Count 275 10^3/cmm (157-399); Red Blood Count 4.85 10^6/uL (3.85-5.65); White Blood Count 12.64 10^3/uL (3.29-11.43)
[2024-02-11 03:39] LABS: Alanine Aminotransferase 7 U/L (0-33); Albumin Level 3.3 g/dL (3.5-5.2); Alkaline Phosphatase 155 U/L (35-105); Anion Gap 18.5 (5-19); Aspartate Amino Transferase 12 U/L (0-32); Carbon Dioxide 18 mmol/L (22-29); Chloride 104 mmol/L (98-107); Creatinine Clr Calc Pharmacy 97.2655; Globulin 3.2 g/dL (1.3-4.6); Glomerular Filtration Rate 75.7 mL/min (90-130); Glucose 135 mg/dL (65-115); Potassium 4.5 mmol/L (3.5-5.1); Sodium 136 mmol/L (136-145); Total Bilirubin 0.3 mg/dL (0.15-1.2); Total Protein 6.5 g/dL (6.6-8.7); Uric Acid 6.6 mg/dL (2.4-5.7)
[2024-02-11 03:44] LABS: Blood Urea Nitrogen 9 mg/dL (6-20); Calcium 9.8 mg/dL (8.5-10.5); Osmolality Calculated 283 mOsm/kg (285-295)
== END 2024-02-11 04:15 | disposition home or self-care (01) ==
LOC: OPOB 01:11 → OBGYN 01:16
PROVIDERS: PCP Family Medicine; Visit Provider Family Medicine
DX: O16.9 Unspecified maternal hypertension, unspecified trimester (principal); Z3A.00 Weeks of gestation of pregnancy not specified
CPT/HCPCS: 36415; 59025; 80053; 81001; 82570; 84156; 84550; 85025; 99211

== ENCOUNTER 2024-02-14 10:23 | Outpatient (CLI) | payer BC, MEDICAID, SELFPAY ==
[2024-02-14 10:30] VITALS: BP 145/97; PULSE 99; BMI 27.9
[2024-02-14 10:32] VITALS: RESP 17; TEMP 36.7
[2024-02-14 10:47] VITALS: BP 132/99; PULSE 100
[2024-02-14 10:55] VITALS: BP 132/99; PULSE 111; RESP 16; TEMP 36.7; O2SAT 99
== END 2024-02-14 10:57 ==
LOC: OPOB 10:24 → OBGYN 10:26
PROVIDERS: PCP Family Medicine; Visit Provider Family Medicine
DX: O16.9 Unspecified maternal hypertension, unspecified trimester (principal); Z3A.00 Weeks of gestation of pregnancy not specified
CPT/HCPCS: 59025

== ENCOUNTER 2024-02-16 05:50 | Outpatient (CLI) | payer BC, MEDICAID, SELFPAY ==
[2024-02-16] VITALS (14 sets, daily range): BP systolic 109–155; BP diastolic 66–109; PULSE 62–131; BMI 27.8
[2024-02-16] MEDS: acetaminophen 325 mg Tablet 650 MG PO (06:42)
[2024-02-16 06:51] LABS: Basophils % 0.3 %; Eosinophils # 0.1 10^3/uL (0.0-0.8); Eosinophils % 0.4 %; Hematocrit 33.6 % (36-47); Lymphocytes # 3.4 10^3/uL (0.8-4.8); Lymphocytes % 29.4 %; Mean Corpuscular HGB Conc 31.3 g/dL (30-55); Mean Corpuscular Volume 73.5 fl (85-98); Mean Platelet Volume 12.4 fL (7.4-10.4); Monocytes # 0.8 10^3/uL (0.2-0.9); Monocytes % 6.6 %; Neutrophils # 7.25 10^3/uL (1.8-7.7); Nucleated Red Blood Cells % 0 %; Platelet Count 310 10^3/cmm (157-399); Red Blood Count 4.57 10^6/uL (3.85-5.65); Red Cell Distribution Width 15.6 % (12.1-15.1); White Blood Count 11.53 10^3/uL (3.29-11.43)
[2024-02-16 07:00] LABS: Alanine Aminotransferase 7 U/L (0-33); Albumin Level 3.6 g/dL (3.5-5.2); Alkaline Phosphatase 163 U/L (35-105); Anion Gap 17.8 (5-19); Aspartate Amino Transferase 14 U/L (0-32); Blood Urea Nitrogen 8 mg/dL (6-20); Calcium 9.3 mg/dL (8.5-10.5); Carbon Dioxide 17 mmol/L (22-29); Chloride 102 mmol/L (98-107); Creatinine Clr Calc Pharmacy 108.5078; Globulin 3.2 g/dL (1.3-4.6); Glomerular Filtration Rate 86.7 mL/min (90-130); Glucose 97 mg/dL (65-115); Osmolality Calculated 274 mOsm/kg (285-295); Potassium 3.8 mmol/L (3.5-5.1); Sodium 133 mmol/L (136-145); Total Bilirubin 0.3 mg/dL (0.15-1.2); Total Protein 6.8 g/dL (6.6-8.7); Uric Acid 6.2 mg/dL (2.4-5.7)
[2024-02-16 07:01] LABS: Bilirubin Urine Negative (Negative); Blood Urine Negative (Negative); Glucose Urine UA Negative (Normal); Ketones Urine Trace (Negative); Leukocyte Esterase Urine 2+ (Negative); Nitrate Urine Negative (Negative); Protein Urine Negative (Negative); Specific Gravity, Urine 1.016 (1.005-1.030); Urine Appearance Clear (CLEAR); Urine Color Yellow (Yellow); pH Urine 6.5 (5-7)
[2024-02-16 07:06] LABS: Add Urine Microscopic? YES; Bacteria Urine 3+ /hpf; Hyaline Casts Urine 2.46 /lpf; RBC Urine 0-2 /hpf (0-2)
[2024-02-16 07:17] LABS: Urine Creatinine 129 mg/dL (28-217); Urine Protein Random 14 mg/dL
[2024-02-16 07:22] LABS: UPRO/UCREAT Ratio 0.11 mg/mg CR
[2024-02-16 07:26] LABS: UA Slide Review UA Slide Review Perf
[2024-02-16 07:27] LABS: Add Urine Culture? No
--- NOTE | 2024-02-16 07:43 | USR_ITS ---
PROCEDURE INFORMATION: Exam: US Biophysical Profile Without Non-Stress Test Exam date and time: 02/16/2024 8:03 AM Age: 28 years old Clinical indication: Other: HTN; TECHNIQUE: Imaging protocol: US biophysical profile without non-stress testing. COMPARISON: [place] [id number] 02/09/2024 4:12 PM FINDINGS: There is a single living intrauterine in the cephalic presentation. Placenta is posterior without previa or abruption. heart rate: 121 bpm Amniotic fluid index: GRABIEL is 15.2 cm. BIOPHYSICAL PROFILE: breathing (BPP): 2 /2 gross body movement (BPP): 2 /2 tone (BPP): 2 /2 Amniotic fluid (BPP): 2 /2 Biophysical profile score (BPP): 8 /8 MATERNAL ANATOMY: Cervix: Cervical length measures 4.4 cm. US/US OB BPP wo NST [id number] IMPRESSION: 1. Single living intrauterine as above.
[2024-02-16 10:15] LABS: Total Volume, Urine 1400 mL
[2024-02-16 10:35] LABS: Urine Total Protein 8.9 mg/dL (0-150); Urine Total Protein 24 Hour 124.6 mg/24hr (0-150)
== END 2024-02-16 09:12 | disposition home or self-care (01) ==
LOC: OPOB 05:53 → OBGYN 05:55
PROVIDERS: PCP Family Medicine; Visit Provider Family Medicine
DX: O16.9 Unspecified maternal hypertension, unspecified trimester (principal); Z3A.00 Weeks of gestation of pregnancy not specified
CPT/HCPCS: 59025; 76819; 80053; 81001; 82570; 84156; 84550; 85025; 87081; 99211

== ENCOUNTER 2024-02-20 10:16 | Outpatient (CLI) | payer BC, SELFPAY ==
[2024-02-20 10:25] VITALS: RESP 18; BMI 27.8
[2024-02-20 10:27] VITALS: BP 141/103; PULSE 91
[2024-02-20 10:47] VITALS: BP 147/88; PULSE 83
== END 2024-02-20 10:54 | disposition home or self-care (01) ==
LOC: OPOB 10:21 → OBGYN 10:22
PROVIDERS: PCP Family Medicine; Visit Provider Family Medicine
DX: O24.419 Gestational diabetes mellitus in pregnancy, unspecified control (principal); Z3A.00 Weeks of gestation of pregnancy not specified
CPT/HCPCS: 59025

== ENCOUNTER 2024-02-22 17:45 | Inpatient (IN) | payer BC, MEDICAID, SELFPAY ==
[2024-02-22] VITALS (30 sets, daily range): BP systolic 121–165; BP diastolic 80–107; PULSE 77–105; BMI 27.8
[2024-02-22 16:17] LABS: Basophils # 0.1 10^3/uL (0.0-0.1); Basophils % 0.4 %; Eosinophils # 0.1 10^3/uL (0.0-0.8); Eosinophils % 0.4 %; Hematocrit 33.8 % (36-47); Lymphocytes # 2.1 10^3/uL (0.8-4.8); Lymphocytes % 16.3 %; Mean Corpuscular HGB Conc 30.5 g/dL (30-55); Mean Corpuscular Hemoglobin 22.9 pg (27-33); Mean Corpuscular Volume 75.1 fl (85-98); Mean Platelet Volume 11.7 fL (7.4-10.4); Monocytes # 0.9 10^3/uL (0.2-0.9); Neutrophils # 9.73 10^3/uL (1.8-7.7); Neutrophils % 75.4 %; Nucleated Red Blood Cells % 0 %; Platelet Count 256 10^3/cmm (157-399); Red Cell Distribution Width 15.7 % (12.1-15.1); White Blood Count 12.89 10^3/uL (3.29-11.43)
[2024-02-22 16:19] LABS: Bilirubin Urine Negative (Negative); Blood Urine Negative (Negative); Glucose Urine UA Negative (Normal); Ketones Urine Negative (Negative); Leukocyte Esterase Urine 1+ (Negative); Nitrate Urine Negative (Negative); Protein Urine Trace (Negative); Specific Gravity, Urine 1.007 (1.005-1.030); Urine Appearance Clear (CLEAR); Urine Color Yellow (Yellow); Urobilinogen Urine 0.2 mg/dL (Negative); pH Urine 6.5 (5-7)
[2024-02-22 16:30] LABS: Alanine Aminotransferase < 5 U/L (0-33); Albumin Level 3.5 g/dL (3.5-5.2); Alkaline Phosphatase 185 U/L (35-105); Anion Gap 16.4 (5-19); Aspartate Amino Transferase 12 U/L (0-32); Blood Urea Nitrogen 11 mg/dL (6-20); Carbon Dioxide 19 mmol/L (22-29); Chloride 102 mmol/L (98-107); Creatinine Clr Calc Pharmacy 124.0089; Globulin 3.7 g/dL (1.3-4.6); Glomerular Filtration Rate 101.1 mL/min (90-130); Glucose 80 mg/dL (65-115); Osmolality Calculated 274 mOsm/kg (285-295); Potassium 4.4 mmol/L (3.5-5.1); Sodium 133 mmol/L (136-145); Total Bilirubin 0.3 mg/dL (0.15-1.2); Total Protein 7.2 g/dL (6.6-8.7); Uric Acid 6.1 mg/dL (2.4-5.7)
[2024-02-22 16:32] LABS: Add Urine Microscopic? YES; Bacteria Urine 1+ /hpf; Hyaline Casts Urine 0.81 /lpf; RBC Urine 0-2 /hpf (0-2); Squamous Epithelial Cell Urine 0-5 /hpf (0-5)
[2024-02-22 16:33] LABS: Add Urine Culture? Yes
[2024-02-22 17:37] LABS: UPRO/UCREAT Ratio 0.41 mg/mg CR; Urine Creatinine 37 mg/dL (28-217); Urine Protein Random 15 mg/dL
--- NOTE | 2024-02-22 18:05 | P.HP_ITS ---
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 Complains of contractions for the past 2 days. Denies LOF, vaginal bleeding. Good movement. care was good and starting in first trimester. course complicated by failed 1 hr GTT and unable to complete 3hr GTT as well as gestational hypertension starting at approx 35 weeks. She has had testing and overall has been unremarkable until today. She has had mild range elevated BPs since 35 weeks with normal pre-eclampsia work-up in L&D prior to today. Growth scans due to failed 1 hr GTT have been with appropriate growth and no evidence of macrosomia or growth restriction. During monitoring today in L&D she has had 1 severe range BP- not sustained and otherwise with mild range BPs. She has had intermittent headaches that have been relieved with tylenol- denies headache currently. Denies RUQ, LE edema, vision changes. Present Details : 2 Para: 1 Labs Blood type OB HPI: A (+) positive Rubella: Immune RPR: Negative GBS: Positive HBsAG: Negative Other Lab Information: Antibody negative HCV Ab negative HIV negative GC/Chlam negative INitial H/H 13.7/40.9 [id number] negative for trisomy 13, 18, 21 1 hr GTT failed (151)- unable to complete 3hr GTT due to vomiting- has been checking home glucoses fasting and 1hr PP and have overall been wnl 3rd trimester H/H 11.1/33.7 Review of Systems 2 Const: Denies: fever(s), chills or fatigue Card: Denies: chest pain, palpitations or edema Resp: Denies: dyspnea or wheezing Medications/Allergies Home Medications Medication Instructions Recorded Confirmed Last Taken Type famotidine 20 mg tablet (Pepcid) 20 mg PO DAILY 11/03/22 02/22/24 02/22/24 History hydroxyzine HCl 25 mg tablet 25 mg PO BID PRN Sleep 04/30/23 02/22/24 02/22/24 History fluoxetine 40 mg capsule (Prozac) 40 mg PO DAILY #30 caps 12/03/23 02/22/24 02/22/24 Rx 1 tab PO DAILY 02/22/24 02/22/24 02/22/24 History Allergies Allergy/AdvReac Type Severity Reaction Status Date / Time No Known Allergies Allergy Verified 02/16/24 06:10 PFSH MARKETING PROJECT SPECIALIST 2 PFSH: Medical History Panic disorder Generalized anxiety disorder Psychiatric care Surgical History [place] teeth extracted Family History Grandmother Breast cancer Maternal Hypertension Family/Other Breast cancer Maternal aunts, 3 Grandfather , Maternal Stroke Hypertension Grandfather Diabetes Paternal Grandmother , Paternal Diabetes Mother Hypertension Father Hypertension Denies family history of Cervical cancer Colon cancer Ovarian cancer Uterine cancer Thyroid disease History History History 2 2 Term 1 0 Miscarriages/Ectopic 0 Living Children 1 Vitals/I&O/Wt Last Vital Signs Pulse 81 02/22/24 17:58 BP 153/99 02/22/24 17:58 Weight last 48 hrs Weight 167 lb Physical Exam 2 Const: COMMON NORMALS: no acute distress, healthy appearing, alert and well nourished Resp: COMMON NORMALS: normal respiratory effort and clear to auscultation bilaterally Cardio: COMMON NORMALS: regular rate, regular rhythm, S1 normal heart sound present, S2 normal heart sound present and No murmurs present (Cardio) Extremity: OTHER: No LE edema Psych: COMMON NORMALS: normal affect and speech normal Skin: COMMON NORMALS: no rashes or lesions noted Data 02/22/24 16:05 02/22/24 16:05 Results Labs OB ([facility]): 2 Obstetrics US 02/09/24 Obstetrics US/Biophysical Profile Blood Type A Positive 02/22/24 Antibody Screen Negative 01/15/23 Hct 33.8 % (36-47) L 02/22/24 Hgb 10.30 g/dL (11.27-16.99) L 02/22/24 Rho(D) Type Rh positive 02/22/24 Plt Count 256 10^3/cmm (157-399) 02/22/24 Hep Bs Antigen Non-reactive (Nonreactive) 07/01/22 Hepatitis C Antibody Non-reactive (Nonreactive) 07/01/22 Rubella IgG Antibody 238.8 IU/mL (0.0-10.0) H 07/01/22 RPR Nonreactive (Nonreactive) 07/01/22 HIV 1&2 Ab & HIV 1 Ag Non-reactive (Non-Reactiv) 07/01/22 TSH 0.21 uIU/mL (0.27-4.20) L 07/01/22 Uric Acid 6.1 mg/dL (2.4-5.7) H 02/22/24 A&P Assessment and plan (1) Pre-eclampsia during in third trimester, antepartum: (2) Term : Plan 28yo at 37w2d with newly diagnosed pre-eclampsia admitted for induction of labor. Urine Pr/Cr 0.4 today- previously has been normal. Routine blood typing. CBC and CMP completed and without severe features. SVE 2/50/-3 and with irregular contractions every 2-5 minutes on toco. FHT Category I. Start low dose pitocin. GBS ppx due to GBS positive. Continuous EFM. Fentanyl protocol and may have epidural when desired. Attestations 2 Medical Necessity Statement*: Meredith Bolivar's hospital stay will require greater than 2 midnights for labor and delivery and care. Coding Level of Care Code Acute Code for Chg Fwd Diagnoses Pre-eclampsia during in third trimester, antepartum O14.93 Term Z34.90
[2024-02-22] MEDS: dextrose 5%-lactated ringers 1,000 ML 125 ML IV (19:15)
[2024-02-22] MEDS: ampicillin 2,000 MG in sodium chloride 0.9% (plus) 50 ML 100 MG IV (19:15)
[2024-02-22] MEDS: oxytocin 30 UNIT/500 ML BAG IV (19:30)
[2024-02-22] MEDS: lactated ringers 1,000 ML 999 ML IV (22:55)
[2024-02-22] MEDS: ampicillin 1,000 MG in sodium chloride 0.9% (plus) 50 ML 100 MG IV (22:58)
[2024-02-23] VITALS (61 sets, daily range): BP systolic 125–196; BP diastolic 64–116; PULSE 74–164; RESP 16–18; TEMP 36.5–37.5; O2SAT 97–99
[2024-02-23] MEDS: ROPivacaine syringe 100 MG/50 ML SYRINGE 10 MG EPIDURAL (00:40)
--- NOTE | 2024-02-23 00:46 | ANES.PREANE2 ---
Pre-Anesthetic Assessment Height/Weight: Height 1.65 m Weight 75.75 kg Pulse BP Pulse Ox O2 Del Method 98 141/92 98 Room Air 02/23/24 00:44 02/23/24 00:44 02/23/24 00:39 02/22/24 18:20 Preop Diagnosis: Intrauterine labor epidural Familial anesthetic complications: none Was Beta Sharon taken within 24 hours: N/A Was Clonidine taken within 24 hours: N/A Social No alcohol and No tobacco Exam alert, oriented x 3 and clear to auscultation bilaterally Airway Mallampati: Class III Dentition: full History/ROS No significant history except as noted Pulmonary None reported CV/HEM Hypertension None reported Hepatic None reported GI Gastroesophageal Reflux Disease Metabolic None reported Musc/skel None reported Neuropsych Anxiety Anesthetic Plan ASA status: 2 Anesthesia: Anesthesia Evaluation and Regional (specify below) (epidural ) Risk of > 500 ml blood loss (7ml/kg in children): Yes, adequate IV access and fluids planned Medications/Allergies Home Medications Medication Instructions Recorded Confirmed Last Taken Type famotidine 20 mg tablet (Pepcid) 20 mg PO DAILY 11/03/22 02/22/24 02/22/24 History hydroxyzine HCl 25 mg tablet 25 mg PO BID PRN Sleep 04/30/23 02/22/24 02/22/24 History fluoxetine 40 mg capsule (Prozac) 40 mg PO DAILY #30 caps 12/03/23 02/22/24 02/22/24 Rx 1 tab PO DAILY 02/22/24 02/22/24 02/22/24 History Allergies Allergy/AdvReac Type Severity Reaction Status Date / Time No Known Allergies Allergy Verified 02/16/24 06:10 Current Medications Generic Name Dose Route Start Last Admin Trade Name Freq PRN Reason Stop Dose Admin Dextrose/Lactated Ringer's 1,000 mls @ 125 mls/hr 02/22/24 17:45 02/22/24 19:15 Dextrose 5%-Lactated Ringers IV 125 mls/hr .Q8H JAQUELINE Administration Lactated Ringer's 1,000 mls @ 999 mls/hr 02/22/24 17:45 02/22/24 22:55 Lactated Ringers IV 999 mls/hr .Q1H1M PRN Administration Per L&D Rescitation Protocol Ampicillin Sodium 1,000 mg/ 50 mls @ 100 mls/hr 02/22/24 22:00 02/22/24 22:20 Sodium Chloride IV 100 mls/hr Q4H JAQUELINE Administration Protocol Oxytocin 30 unit in 500 mls @ 1 mls/hr 02/22/24 18:30 02/22/24 19:30 Pitocin IV 1 milliunit/min .Q24H JAQUELINE 1 mls/hr Administration Protocol 1 MILLIUNIT/MIN PFSH Anesthesia Medical History Panic disorder Generalized anxiety disorder Psychiatric care Surgical History [place] teeth extracted Family History Grandmother Breast cancer Maternal Hypertension Family/Other Breast cancer Maternal aunts, 3 Grandfather , Maternal Stroke Hypertension Grandfather Diabetes Paternal Grandmother , Paternal Diabetes Mother Hypertension Father Hypertension Denies family history of Cervical cancer Colon cancer Ovarian cancer Uterine cancer Thyroid disease Female Reproductive History : 2 Data Anesthesia 02/22/24 16:05 02/22/24 16:05 Short CBC 02/22/24 Range/Units 16:05 WBC 12.89 H (3.29-11.43) 10^3/uL Hgb 10.30 L (11.27-16.99) g/dL Hct 33.8 L (36-47) % MCV 75.1 L (85-98) fl Plt Count 256 (157-399) 10^3/cmm Neut % (Auto) 75.4 % Neut # (Auto) 9.73 H (1.8-7.7) 10^3/uL BMP 02/22/24 16:05 Sodium 133 L Potassium 4.4 Chloride 102 Carbon Dioxide 19 L BUN 11 Creatinine 0.7 Glucose 80 Calcium 9.0 Liver Function 02/22/24 Range/Units 16:05 Total Bilirubin 0.3 (0.15-1.2) mg/dL AST 12 (0-32) U/L ALT < 5 (0-33) U/L Alkaline Phosphatase 185 H (35-105) U/L Albumin 3.5 (3.5-5.2) g/dL Urine 02/22/24 Range/Units 16:05 Urine Color Yellow (Yellow) Urine Appearance Clear (CLEAR) Urine pH 6.5 (5-7) Ur Specific [place] 1.007 (1.005-1.030) Urine Protein Trace A (Negative) Urine Glucose (UA) Negative (Normal) Urine Ketones Negative (Negative) Urine Nitrate Negative (Negative) Urine Bilirubin Negative (Negative) Ur Leukocyte Esterase 1+ A (Negative) Urine RBC 0-2 (0-2) /hpf Urine WBC 11-20 H (0-5) /hpf Blood Bank 02/22/24 18:07 Blood Type A Positive Rho(D) Type Rh positive Antibody Screen Negative Cardiac Studies: No Data to Display Anesthesia Procedures Epidural Time Out Performed: Yes Consents Signed: Procedure Consent Consent: requested by attending/covering physician, from patient, risks and benefits reviewed and patient agrees to proceed Lumbar Level: L4-L5 Epidural position: sitting Epidural procedure: sterile prep of area, 1% lidocaine to numb the area, 18 g needle, negative for paresthesia passed, neg for paresthesia, test dose given, 1.5% xylocaine 1:200k epi, 0.2% Ropivacaine bolus ml (5), placed PCEA, no systemic response, sterile dressing applied, L.U.D. no apparent complications and 0.2% Ropiavacaine @ mls/hr (10) Additional Comments: HARIS 6cm, catheter easily threaded to 5cm in the space. VS monitored throughout and remained stable. Pt educated on PODODERMATOLOGIST and reports decreased pain with contractions.
[2024-02-23] MEDS: ondansetron 2 mg/ML SDV 2 mL 4 MG IVP (01:16)
--- NOTE | 2024-02-23 01:21 | PM.MISC ---
Miscellaneous Note Note: pt c/o of hot spot on left side following epidural placement, 100 MCG Fentanyl and 3ml 0.25% bupivacaine given via epidural @0110
[2024-02-23] MEDS: tranexamic acid 1,000 MG/100 ML PREMIX 600 MG IV (01:45)
[2024-02-23] MEDS: lidocaine 2% INJ 20 mL INJECTION (01:45)
[2024-02-23] MEDS: miSOPROStol 200 mcg Tablet 800 MCG PR (02:07)
--- NOTE | 2024-02-23 02:22 | P.PCNOB_ITS ---
Delivery Note: Date of delivery: February 23, 2024 Pre-delivery diagnoses: Pre-eclampsia Term Post-delivery diagnoses: Pre-eclampsia Term delivery of viable female Procedure: Spontaneous Vaginal Delivery Delivering Physician: Courtney Gonzáles DO Estimated blood loss (mL): 800 Pre-Delivery Course: Admitted on 02/22/2024 for induction of labor due to new onset preeclampsia. She was started on low-dose Pitocin with initial SVE of 2/50/-3. She progressed to 3/50/-3 and requested epidural anesthesia. After epidural anesthesia she quickly progressed to complete. Delivery: Patient progressed to complete. Patient placed in lithotomy position. AROM performed at 0135 with clear fluid. Patient pushed with adequate effort. Head delivered in LEN position, loose nuchal cord was present and was reduced. Shoulders and rest of body delivered without difficulty with epidural anesthesia. Mouth and nares bulb suctioned. Cord clamped and cut after 1 minute delay. Infant placed on maternal abdomen. Placenta spontaneously delivered and noted to be intact. Pitocin started. Fundus was noted to be boggy. Tone improved with massage however due to continued bleeding she was given 1 g of TXA. Lower uterine sweep performed with clots expressed. Following and noted to have improved tone however with continued intermittent bleeding was given 100 mcg Cytotec. The vagina and cervix were inspected and midline secondary laceration was noted. This was repaired using a 3-0 Vicryl. Fundus was again noted to be firm. Final lower uterine sweep performed with further clots expressed and following and noted to be with minimal bleeding. Female born at 0 136 with 8/8 weighing 3120 g and measuring 20 in length, 13.75 head circumference and 13.25 chest circumference. Placenta noted to be intact with centrally inserted umbilical cord and three- vessel cord. Complications: Maternal hemorrhage Infant required CPAP for low O2 saturations?see nursing documentation for further details. History History History 2 Term 2 0 Miscarriages/Ectopic 0 Living Children 2 A&P Assessment and plan (1) Spontaneous vaginal delivery: (2) Pre-eclampsia during in third trimester, antepartum: Coding Level of Care Code Acute Code for Chg Fwd Diagnoses Spontaneous vaginal delivery O80 Pre-eclampsia during in third trimester, antepartum O14.93
[2024-02-23] MEDS: oxytocin 30 UNIT/500 ML BAG 600 UNIT IV (02:30)
[2024-02-23] MEDS: acetaminophen 325 mg Tablet 650 MG PO (04:38)
[2024-02-23] MEDS: PRENATAL VIT NO.130/IRON/FOLIC 1 EACH TABLET PO (08:51)
[2024-02-23] MEDS: ferrous sulfate EC 325 mg Tablet PO (08:51)
[2024-02-23] MEDS: docusate sodium 100 mg Capsule PO ×2 (08:51→18:11)
[2024-02-23] MEDS: ibuprofen 800 mg tablet PO ×3 (08:51→21:49)
[2024-02-23] MEDS: fluoxetine 20 mg Capsule 40 MG PO (08:54)
[2024-02-23 14:02] LABS: Hematocrit 23.2 % (36-47); Mean Corpuscular HGB Conc 30.6 g/dL (30-55); Mean Corpuscular Hemoglobin 22.8 pg (27-33); Mean Corpuscular Volume 74.6 fl (85-98); Mean Platelet Volume 11.5 fL (7.4-10.4); Platelet Count 189 10^3/cmm (157-399); Red Blood Count 3.11 10^6/uL (3.85-5.65); Red Cell Distribution Width 15.6 % (12.1-15.1); White Blood Count 13.84 10^3/uL (3.29-11.43)
[2024-02-24 04:30] VITALS: PULSE 86; RESP 17; TEMP 36.9
[2024-02-24 07:33] LABS: Basophils # 0.1 10^3/uL (0.0-0.1); Basophils % 0.4 %; Eosinophils % 0.3 %; Hematocrit 23.9 % (36-47); Lymphocytes # 3.7 10^3/uL (0.8-4.8); Lymphocytes % 29.3 %; Mean Corpuscular HGB Conc 29.7 g/dL (30-55); Mean Corpuscular Hemoglobin 22.5 pg (27-33); Mean Corpuscular Volume 75.9 fl (85-98); Mean Platelet Volume 11.3 fL (7.4-10.4); Monocytes # 0.9 10^3/uL (0.2-0.9); Monocytes % 7.2 %; Neutrophils # 7.92 10^3/uL (1.8-7.7); Neutrophils % 62.3 %; Nucleated Red Blood Cells % 0 %; Platelet Count 225 10^3/cmm (157-399); Red Blood Count 3.15 10^6/uL (3.85-5.65); Red Cell Distribution Width 15.8 % (12.1-15.1); White Blood Count 12.71 10^3/uL (3.29-11.43)
[2024-02-24] MEDS: ibuprofen 800 mg tablet PO (09:07)
[2024-02-24] MEDS: docusate sodium 100 mg Capsule PO (09:07)
[2024-02-24] MEDS: ferrous sulfate EC 325 mg Tablet PO (09:07)
[2024-02-24] MEDS: PRENATAL VIT NO.130/IRON/FOLIC 1 EACH TABLET PO (09:07)
[2024-02-24 09:31] VITALS: BP 133/87; PULSE 75; RESP 15; TEMP 36.6; O2SAT 99
--- NOTE | 2024-02-24 12:09 | P.DS_ITS ---
Discharge Providers DIAMOND SAW OPERATOR Date of Admission: 02/22/24 17:45 Date of Discharge: 02/24/24 Attending Provider at Admission: Courtney Gonzáles DO Attending Provider at Discharge: Courtney Gonzáles DO Primary Care Provider: Courtney Gonzáles DO Diagnoses at Discharge Discharge Diagnosis (1) Spontaneous vaginal delivery: Status: Acute (2) Pre-eclampsia during in third trimester, antepartum: Status: Acute (3) hemorrhage: Status: Acute (4) Anemia: Status: Acute Reason for Visit Reason for Visit: Contractions Hospital Course Hospital Course Pre-Delivery Course: Admitted on 02/22/2024 for induction of labor due to new onset preeclampsia. She was started on low-dose Pitocin with initial SVE of 2/50/-3. She progressed to 3/50/-3 and requested epidural anesthesia. After epidural anesthesia she quickly progressed to complete. Delivery: Patient progressed to complete. Patient placed in lithotomy position. AROM performed at 0135 with clear fluid. Patient pushed with adequate effort. Head delivered in LEN position, loose nuchal cord was present and was reduced. Shoulders and rest of body delivered without difficulty with epidural anesthesia. Mouth and nares bulb suctioned. Cord clamped and cut after 1 minute delay. placed on maternal abdomen. Placenta spontaneously delivered and noted to be intact. Pitocin started. Fundus was noted to be boggy. Tone improved with massage however due to continued bleeding she was given 1 g of TXA. Lower uterine sweep performed with clots expressed. Following and noted to have improved tone however with continued intermittent bleeding was given 100 mcg Cytotec. The vagina and cervix were inspected and midline secondary laceration was noted. This was repaired using a 3-0 Vicryl. Fundus was again noted to be firm. Final lower uterine sweep performed with further clots expressed and following and noted to be with minimal bleeding. Female born at 0 136 with 8/8 weighing 3120 g and measuring 20 in length, 13.75 head circumference and 13.25 chest circumference. Placenta noted to be intact with centrally inserted umbilical cord and three- vessel cord. Complications: Maternal hemorrhage Infant required CPAP for low O2 saturations?see nursing documentation for further details. course: Patient underwent on 02/23/24. course was remarkable for anemia of 7.1 g/dL down from 10.3 on admission. Hemoglobin on repeat remained stable with minimal bleeding. She will be discharged on iron supplementation. Following delivery patient ambulated well, tolerated a normal diet without nausea or vomiting. Pain was well controlled on PO medications, bottle feeding well, no leg/calf pain, no calf/leg swelling, normal urination, passing gas and normal bowel movements. Vaginal bleeding thin lochia and decreasing. Blood pressure without persistent severe elevation during admission and mild elevations became intermittent with normal blood pressure on day of discharge. Follow- up planned for 1 week for blood pressure check and 6 weeks . Warning signs for endometritis, pre-eclampsia, DVT/PE, mastitis were reviewed, discussed additional warning signs including increased vaginal bleeding, worsening abdominal pain. Pelvic rest and activity precautions reviewed as well. She is discharged on 02/24/24 in stable condition. Physical Exam Const: COMMON NORMALS: no acute distress, healthy appearing, alert and well nourished Resp: COMMON NORMALS: normal respiratory effort and clear to auscultation bilaterally AUSCULTATION: clear to auscultation bilaterally Cardio: COMMON NORMALS: regular rate, regular rhythm, S1 normal heart sound present, S2 normal heart sound present and No murmurs present (Cardio) RATE: regular rate RHYTHM: regular rhythm HEART SOUNDS: S1 normal heart sound present and S2 normal heart sound present : OTHER: Uterine fundus firm and below the umbilicus Extremity: OTHER: No LE edema Neuro: SENSORIUM/ORIENTATION: Yes alert Psych: COMMON NORMALS: normal affect and speech normal SPEECH: Yes normal speech Skin: COMMON NORMALS: no rashes or lesions noted GENERAL SKIN EXAM: no rashes or lesions noted History History History 2 Term 2 0 Miscarriages/Ectopic 0 Living Children 2 Discharge Data Studies Completed and Pending Laboratory Results WBC 12.71 10^3/uL (3.29-11.43) H 02/24/24 07:23 RBC 3.15 10^6/uL (3.85-5.65) L 02/24/24 07:23 Hgb 7.10 g/dL (11.27-16.99) L 02/24/24 07:23 Hct 23.9 % (36-47) L 02/24/24 07:23 MCV 75.9 fl (85-98) L 02/24/24 07:23 MCH 22.5 pg (27-33) L 02/24/24 07:23 MCHC 29.7 g/dL (30-55) L 02/24/24 07:23 RDW 15.8 % (12.1-15.1) H 02/24/24 07:23 Plt Count 225 10^3/cmm (157-399) 02/24/24 07:23 MPV 11.3 fL (7.4-10.4) H 02/24/24 07:23 Neut % (Auto) 62.3 % 02/24/24 07:23 Lymph % (Auto) 29.3 % 02/24/24 07:23 [place] % (Auto) 7.2 % 02/24/24 07:23 Eos % (Auto) 0.3 % 02/24/24 07:23 Baso % (Auto) 0.4 % 02/24/24 07:23 Neut # (Auto) 7.92 10^3/uL (1.8-7.7) H 02/24/24 07:23 Lymph # (Auto) 3.7 10^3/uL (0.8-4.8) 02/24/24 07:23 [place] # (Auto) 0.9 10^3/uL (0.2-0.9) 02/24/24 07:23 Eos # (Auto) 0.0 10^3/uL (0.0-0.8) 02/24/24 07:23 Baso # (Auto) 0.1 10^3/uL (0.0-0.1) 02/24/24 07:23 Nucleated RBC % (auto) 0 % 02/24/24 07:23 Nucleated RBCs # 0.0 /100WBC 02/24/24 07:23 Sodium 133 mmol/L (136-145) L 02/22/24 16:05 Potassium 4.4 mmol/L (3.5-5.1) 02/22/24 16:05 Chloride 102 mmol/L (98-107) 02/22/24 16:05 Carbon Dioxide 19 mmol/L (22-29) L 02/22/24 16:05 Anion Gap 16.4 (5-19) 02/22/24 16:05 BUN 11 mg/dL (6-20) 02/22/24 16:05 Creatinine 0.7 mg/dL (0.5-0.9) 02/22/24 16:05 GFR Calculation 101.1 mL/min (90-130) 02/22/24 16:05 Glucose 80 mg/dL (65-115) 02/22/24 16:05 Calculated Osmolality 274 mOsm/kg (285-295) L 02/22/24 16:05 Uric Acid 6.1 mg/dL (2.4-5.7) H 02/22/24 16:05 Calcium 9.0 mg/dL (8.5-10.5) 02/22/24 16:05 Total Bilirubin 0.3 mg/dL (0.15-1.2) 02/22/24 16:05 AST 12 U/L (0-32) 02/22/24 16:05 ALT < 5 U/L (0-33) 02/22/24 16:05 Alkaline Phosphatase 185 U/L (35-105) H 02/22/24 16:05 Total Protein 7.2 g/dL (6.6-8.7) 02/22/24 16:05 Albumin 3.5 g/dL (3.5-5.2) 02/22/24 16:05 Globulin 3.7 g/dL (1.3-4.6) 02/22/24 16:05 Urine Color Yellow (Yellow) 02/22/24 16:05 Urine Appearance Clear (CLEAR) 02/22/24 16:05 Urine pH 6.5 (5-7) 02/22/24 16:05 Ur Specific [place] 1.007 (1.005-1.030) 02/22/24 16:05 Urine Protein Trace (Negative) A 02/22/24 16:05 Urine Glucose (UA) Negative (Normal) 02/22/24 16:05 Urine Ketones Negative (Negative) 02/22/24 16:05 Urine Blood Negative (Negative) 02/22/24 16:05 Urine Nitrate Negative (Negative) 02/22/24 16:05 Urine Bilirubin Negative (Negative) 02/22/24 16:05 Urine Urobilinogen 0.2 mg/dL (Negative) 02/22/24 16:05 Ur Leukocyte Esterase 1+ (Negative) A 02/22/24 16:05 Urine RBC 0-2 /hpf (0-2) 02/22/24 16:05 Urine WBC 11-20 /hpf (0-5) H 02/22/24 16:05 Ur Squamous Epith Cells 0-5 /hpf (0-5) 02/22/24 16:05 Amorphous Sediment Not Reportable 02/22/24 16:05 Urine Bacteria 1+ /hpf (NONE) H 02/22/24 16:05 Hyaline Casts 0.81 /lpf 02/22/24 16:05 U Random Total Protein 15 mg/dL 02/22/24 16:05 Urine Creatinine 37 mg/dL (28-217) 02/22/24 16:05 Protein/Creatinin Ratio 0.41 mg/mg CR 02/22/24 16:05 Blood Type A Positive 02/22/24 18:07 Rho(D) Type Rh positive 02/22/24 18:07 Antibody Screen Negative 02/22/24 18:07 Vitals Last Vital Signs Temp 98 F 02/24/24 09:31 Pulse 75 02/24/24 09:31 Resp 15 02/24/24 09:31 BP 133/87 02/24/24 09:31 Pulse Ox 99 02/24/24 09:31 O2 Del Method Room Air 02/24/24 09:31 Results Labs OB ([facility]): Obstetrics US 02/09/24 Obstetrics US/Biophysical Profile Blood Type A Positive 02/22/24 Antibody Screen Negative 02/22/24 Hct 23.9 % (36-47) L 02/24/24 Hgb 7.10 g/dL (11.27-16.99) L 02/24/24 Rho(D) Type Rh positive 02/22/24 Plt Count 225 10^3/cmm (157-399) 02/24/24 Uric Acid 6.1 mg/dL (2.4-5.7) H 02/22/24 Discharge Plan Discharge Patient Disposition: Home Condition: Stable Prescriptions: New ferrous sulfate 325 mg (65 mg iron) Tablet,Delayed Release (Dr/Ec) 325 mg PO BREAKFAST Qty: 90 0RF ibuprofen 800 mg Tablet 800 mg PO TID Qty: 90 0RF docusate sodium 100 mg Capsule 100 mg PO BID Qty: 60 0RF Continued fluoxetine [Prozac] 40 mg capsule 40 mg PO DAILY Qty: 30 2RF hydroxyzine HCl 25 mg tablet 25 mg PO BID PRN (Reason: Sleep) 1 tab PO DAILY Discontinued famotidine [Pepcid] 20 mg tablet 20 mg PO DAILY Discharge Orders: Discharge Order (Routine); Ordered 02/24/24 Ordered By: Courtney Gonzáles Discharge Diet: Regular Discharge Activity: Increase activity as tolerated Patient Instructions: Caring for Your Baby (DC), Bottle Feeding Your Baby (DC), Shaken Baby Syndrome (DC), Jaundice in Newborns (DC), Lay Person CPR on Newborns (DC), Caring for Your Formula Fed Baby (DC), Your [place]'s Appearance (DC), Safe Sleeping for Infants (DC), Phototherapy for Jaundice in Newborns (DC), Opioid Safety Activity Restrictions/Additional Instructions: Pelvic rest for 6 weeks. Follow-up with Dr. Gonzáles at 1 and 6 weeks . Discharge Attestations DIAMOND SAW OPERATOR Time Spent in Discharge Care*: greater than 30 min Coding Level of Care Code Acute Code for Chg Fwd Diagnoses Spontaneous vaginal delivery O80 Pre-eclampsia during in third trimester, antepartum O14.93 hemorrhage O72.1 Anemia D64.9
[2024-02-24 13:46] VITALS: BP 142/94; PULSE 74; RESP 15; TEMP 36.6; O2SAT 97
== END 2024-02-24 14:23 | disposition home or self-care (01) | DRG 807 ==
LOC: OBGYN 02-23 01:53
PROVIDERS: Admitting Provider Family Medicine; PCP Family Medicine; Visit Provider Family Medicine
DX: O14.94 Unspecified pre-eclampsia, complicating childbirth (principal); Z37.0 Single live birth; Z3A.37 37 weeks gestation of pregnancy; O72.1 Other immediate postpartum hemorrhage; O90.81 Anemia of the puerperium; D64.9 Anemia, unspecified; O99.344 Other mental disorders complicating childbirth; F32.A Depression, unspecified; F41.9 Anxiety disorder, unspecified; O69.81X0 Labor and delivery complicated by cord around neck, without compression, not applicable or unspecified; O99.824 Streptococcus B carrier state complicating childbirth; O70.9 Perineal laceration during delivery, unspecified
CPT/HCPCS: 36415; 59025; 80053; 81001; 82570; 84156; 84550; 85025; 85027; 86850; 86900; 87086; 99211; J0290; J2405; J2590; J2795; J3010; J3490; J7120; J7121

== ENCOUNTER 2024-02-28 08:51 | Inpatient (IN) | payer BC, MEDICAID, SELFPAY ==
[2024-02-23 07:00] VITALS: PULSE 92; RESP 17; TEMP 36.8; O2SAT 98
[2024-02-23 09:21] VITALS: PULSE 74; RESP 16; TEMP 36.7; O2SAT 98
[2024-02-23 11:21] VITALS: PULSE 96; RESP 18; TEMP 36.7; O2SAT 97
[2024-02-23 15:21] VITALS: PULSE 91; RESP 18; TEMP 36.5; O2SAT 98
[2024-02-23 21:30] VITALS: PULSE 81; RESP 16; TEMP 36.7; O2SAT 99
[2024-02-24 09:31] VITALS: PULSE 75; RESP 15; TEMP 36.7; O2SAT 99
[2024-02-28] VITALS (160 sets, daily range): BP systolic 101–188; BP diastolic 55–121; PULSE 60–105; RESP 16–26; TEMP 36.8; O2SAT 93–100
--- NOTE | 2024-02-28 09:12 | USR_ITS ---
PROCEDURE INFORMATION: Exam: US Abdomen, Limited; Right Upper Quadrant Exam date and time: 02/28/2024 10:07 AM Age: 28 years old Clinical indication: Abdominal pain; Localized; Right upper quadrant (ruq); Additional info: preeclamptic, ruq pain, accelerated hypertension TECHNIQUE: Imaging protocol: Real time ultrasound of the abdomen with image documentation. Limited exam focused on the right upper quadrant. COMPARISON: [place] [id number] 02/09/2024 4:12 PM FINDINGS: Liver: Normal. No masses. Gallbladder: Normal. No gallstones. There is no gallbladder wall thickening. Biliary ducts: Normal. No stones. No dilation. The common bile duct measures 4 mm. Pancreas: Visualized pancreas is unremarkable. Right kidney: Normal. No mass. No hydronephrosis. The right kidney measures 11.1 cm in length and is normal in echotexture. US/US liver [id number] IMPRESSION: No acute findings.
[2024-02-28 09:21] LABS: Basophils # 0.1 10^3/uL (0.0-0.1); Basophils % 0.4 %; Eosinophils # 0.1 10^3/uL (0.0-0.8); Eosinophils % 1.1 %; Hematocrit 28.8 % (36-47); Lymphocytes # 3.3 10^3/uL (0.8-4.8); Lymphocytes % 26.9 %; Mean Corpuscular HGB Conc 29.2 g/dL (30-55); Mean Corpuscular Hemoglobin 23.1 pg (27-33); Mean Corpuscular Volume 79.1 fl (85-98); Mean Platelet Volume 10.2 fL (7.4-10.4); Monocytes # 0.6 10^3/uL (0.2-0.9); Monocytes % 5.1 %; Neutrophils # 8.08 10^3/uL (1.8-7.7); Neutrophils % 65.9 %; Nucleated Red Blood Cells % 0 %; Platelet Count 459 10^3/cmm (157-399); Red Blood Count 3.64 10^6/uL (3.85-5.65); Red Cell Distribution Width 18.5 % (12.1-15.1); White Blood Count 12.24 10^3/uL (3.29-11.43)
--- NOTE | 2024-02-28 09:26 | ED_ITS ---
HPI - General Adult 2 General: Chief complaint: Abdominal Pain Stated complaint: abd pain (had a baby x 5 days ago) Time Seen by Provider: 02/28/24 08:57 History of Present Illness: 28-year-old female presents to the [facility] ency room with complaints of right upper quadrant abdominal pain headache and elevated blood pressure. 5 days ago patient was induced at 37 weeks and 2 days (based on LMP confirmed by first trimester ultrasound) for onset of preeclampsia. Reviewing her discharge summary she did not require any magnesium and her blood pressure normalized at the time of discharge. She was not discharged home on any antihypertensives. She has been taking ibuprofen for her headache. She still having usual amount of lochia. Lochia has been rubra. She did have a vaginal delivery with a midline second-degree tear. Her delivery was also complicated by hemorrhage she was given a gram of TXA and 100 mcg of Cytotec. Patient was discharged home 4 days ago. Onset of the headache and right upper quadrant pain was overnight. Associated symptoms: Reports headache(s) and nausea; Deny chest pain, dyspnea or rash Related Data Home Medications Medication Instructions Recorded Confirmed 1 tab PO DAILY 02/22/24 02/28/24 Previous Rx's Medication Instructions Recorded fluoxetine 40 mg capsule (Prozac) 40 mg PO DAILY #30 caps 12/03/23 docusate sodium 100 mg capsule 100 mg PO BID #60 caps 02/24/24 ferrous sulfate 325 mg (65 mg 325 mg PO BREAKFAST #90 tabs 02/24/24 iron) tablet,delayed release ibuprofen 800 mg tablet 800 mg PO TID #90 tabs 02/24/24 Allergies Allergy/AdvReac Type Severity Reaction Status Date / Time No Known Allergies Allergy Verified 02/16/24 06:10 Review of Systems 2 Const: Denies: fever(s) or chills Card: Denies: chest pain Resp: Denies: dyspnea GI: Reports: abdominal pain and nausea : Denies: dysuria, urinary frequency or urinary urgency Musc: Denies: neck pain or back pain Skin/Breast: Denies: rash Neuro: Reports: headache(s) PFSH ED 2 PFSH: Medical History Panic disorder Generalized anxiety disorder Psychiatric care Surgical History Molena teeth extracted Family History Grandmother Breast cancer Maternal Hypertension Family/Other Breast cancer Maternal aunts, 3 Grandfather , Maternal Stroke Hypertension Grandfather Diabetes Paternal Grandmother , Paternal Diabetes Mother Hypertension Father Hypertension Denies family history of Cervical cancer Colon cancer Ovarian cancer Uterine cancer Thyroid disease Physical Exam 2 Const: COMMON NORMALS: no acute distress GENERAL APPEARANCE: cooperative and comfortable ORIENTATION/CONSCIOUSNESS: Yes awake, Yes oriented to person, Yes oriented to place and Yes oriented to time HENMT: COMMON NORMALS: normocephalic, atraumatic and hearing grossly normal bilaterally HEAD & SCALP: normocephalic and atraumatic Resp: COMMON NORMALS: normal respiratory effort, No retractions, No use of accessory muscles and clear to auscultation bilaterally AUSCULTATION: clear to auscultation bilaterally Cardio: COMMON NORMALS: regular rate, regular rhythm and No murmurs present (Cardio) RATE: regular rate RHYTHM: regular rhythm GI: COMMON NORMALS: Soft to palpation and No hepatosplenomegaly present A USCULTATION: Yes normoactive bowel sounds PALPATION: Yes Soft to palpation, No Tenderness to palpation present (GI), No Guarding due to palpation present (GI) and Yes No hepatosplenomegaly present Extremity: COMMON NORMALS: normal to inspection, capillary refill normal, no clubbing, cyanosis or edema, no calf tenderness and no pedal edema Neuro: SENSORIUM/ORIENTATION: Yes oriented to person, Yes oriented to place and Yes oriented to time Skin: COMMON NORMALS: no rashes or lesions noted GENERAL SKIN EXAM: no rashes or lesions noted Course 2 Vital Signs: Vital signs: Vital Signs Temperature 98.2 F 02/28/24 08:58 Pulse Rate 92 02/28/24 10:58 Respiratory Rate 16 02/28/24 10:35 Blood Pressure 154/94 02/28/24 10:58 Pulse Oximetry 99 02/28/24 10:58 Oxygen Delivery Me thod Room Air 02/28/24 11:16 MDM - General Adult Medical Decision Making preeclampsia. Patient was given loading dose of mag started on 1 magnesium drip blood pressure improved with labetalol and hydralazine as well as magnesium. Hemoglobin slightly increased no thrombocytopenia alk phos elevated but less than what has been previously. Will admit patient to [facility]. I discussed Dr. Gonzáles she refers the patient on-call gynecology discussed with Dr. Rubio on-call she will admit the patient to the OB department. Medical Records I reviewed the patient's medical records. Lab Data I reviewed the patient's lab results. 02/28/24 09:16 12 09:16 Radiology Impressions Liver Ultrasound 02/28/24 09:12 IMPRESSION: No acute findings. Laboratory Results WBC 12.24 10^3/uL (3.29-11.43) H 02/28/24 09:16 RBC 3.64 10^6/uL (3.85-5.65) L 02/28/24 09:16 Hgb 8.40 g/dL (11.27-16.99) L 02/28/24 09:16 Hct 28.8 % (36-47) L 02/28/24 09:16 MCV 79.1 fl (85-98) L 02/28/24 09:16 MCH 23.1 pg (27-33) L 02/28/24 09:16 MCHC 29.2 g/dL (30-55) L 02/28/24 09:16 RDW 18.5 % (12.1-15.1) H 02/28/24 09:16 Plt Count 459 10^3/cmm (157-399) H 02/28/24 09:16 MPV 10.2 fL (7.4-10.4) 02/28/24 09:16 Neut % (Auto) 65.9 % 02/28/24 09:16 Lymph % (Auto) 26.9 % 02/28/24 09:16 Stone % (Auto) 5.1 % 02/28/24 09:16 Eos % (Auto) 1.1 % 02/28/24 09:16 Baso % (Auto) 0.4 % 02/28/24 09:16 Neut # (Auto) 8.08 10^3/uL (1.8-7.7) H 02/28/24 09:16 Lymph # (Auto) 3.3 10^3/uL (0.8-4.8) 02/28/24 09:16 Stone # (Auto) 0.6 10^3/uL (0.2-0.9) 02/28/24 09:16 Eos # (Auto) 0.1 10^3/uL (0.0-0.8) 02/28/24 09:16 Baso # (Auto) 0.1 10^3/uL (0.0-0.1) 02/28/24 09:16 Nucleated RBC % (auto) 0 % 02/28/24 09:16 Nucleated RBCs # 0.0 /100WBC 02/28/24 09:16 Sodium 139 mmol/L (136-145) 02/28/24 09:16 Potassium 4.0 mmol/L (3.5-5.1) 02/28/24 09:16 Chloride 104 mmol/L (98-107) 02/28/24 09:16 Carbon Dioxide 23 mmol/L (22-29) 02/28/24 09:16 Anion Gap 16.0 (5-19) 02/28/24 09:16 BUN 11 mg/dL (6-20) 02/28/24 09:16 Creatinine 0.8 mg/dL (0.5-0.9) 02/28/24 09:16 GFR Calculation 86.7 mL/min (90-130) L 02/28/24 09:16 Glucose 94 mg/dL (65-115) 02/28/24 09:16 Calculated Osmolality 287 mOsm/kg (285-295) 02/28/24 09:16 Uric Acid 5.5 mg/dL (2.4-5.7) 02/28/24 09:16 Calcium 9.1 mg/dL (8.5-10.5) 02/28/24 09:16 Magnesium 2.1 mg/dL (1.7-2.3) 02/28/24 09:16 Total Bilirubin 0.3 mg/dL (0.15-1.2) 02/28/24 09:16 AST 22 U/L (0-32) 02/28/24 09:16 ALT 27 U/L (0-33) 02/28/24 09:16 Alkaline Phosphatase 161 U/L (35-105) H 02/28/24 09:16 Total Protein 7.0 g/dL (6.6-8.7) 02/28/24 09:16 Albumin 3.7 g/dL (3.5-5.2) 02/28/24 09:16 Globulin 3.3 g/dL (1.3-4.6) 02/28/24 09:16 All radiology interpretation(s) finalized by discharge Discharge Plan Discharge Patient Disposition: Admitted As Inpatient Admit Provider: Cathy Rubio Clinical Impression: Pre-eclampsia in period Condition: Stable Coding Level of Care Code ED Utility Porter for Cely Steve
[2024-02-28] MEDS: labetalol 5 mg/mL SDV 20mL 10 MG IVP (09:31)
[2024-02-28] MEDS: magnesium sulfate premix 4 GM/100 ML PREMIX IV (09:33)
[2024-02-28 09:38] LABS: Alanine Aminotransferase 27 U/L (0-33); Albumin Level 3.7 g/dL (3.5-5.2); Alkaline Phosphatase 161 U/L (35-105); Aspartate Amino Transferase 22 U/L (0-32); Blood Urea Nitrogen 11 mg/dL (6-20); Calcium 9.1 mg/dL (8.5-10.5); Carbon Dioxide 23 mmol/L (22-29); Chloride 104 mmol/L (98-107); Globulin 3.3 g/dL (1.3-4.6); Glomerular Filtration Rate 86.7 mL/min (90-130); Glucose 94 mg/dL (65-115); Magnesium 2.1 mg/dL (1.7-2.3); Osmolality Calculated 287 mOsm/kg (285-295); Sodium 139 mmol/L (136-145); Total Bilirubin 0.3 mg/dL (0.15-1.2); Uric Acid 5.5 mg/dL (2.4-5.7)
[2024-02-28] MEDS: hyDRALAzine 20 mg/mL INJ 1 mL 10 MG IVP (10:17)
[2024-02-28 10:47] LABS: Bilirubin Urine Negative (Negative); Blood Urine Negative (Negative); Glucose Urine UA Negative (Normal); Ketones Urine Negative (Negative); Leukocyte Esterase Urine Negative (Negative); Nitrate Urine Negative (Negative); Protein Urine Negative (Negative); Specific Gravity, Urine 1.006 (1.005-1.030); Urine Appearance Clear (CLEAR); Urine Color Yellow (Yellow); Urobilinogen Urine 0.2 mg/dL (Negative); pH Urine 7.5 (5-7)
[2024-02-28 11:00] LABS: Add Urine Microscopic? YES; Bacteria Urine TRACE /hpf; RBC Urine 0-4 /hpf (0-2); Squamous Epithelial Cell Urine 0-4 /hpf (0-5); UA Manual Slide Review YES; WBC Urine 0-4 /hpf (0-5)
[2024-02-28 11:02] LABS: Creatinine Urine, Random 20 mg/dL (28-217); Microalbumin Random Urine 1 ug/dL (0-20)
[2024-02-28 11:03] LABS: Microalbum Creatinine Ratio Ur 50 mg/dL (0-20)
[2024-02-28] MEDS: magnesium sulfate premix 20 GM/500 ML BAG IV (11:10)
[2024-02-28] MEDS: dextrose 5%-lactated ringers 1,000 ML 75 ML IV (11:16)
[2024-02-28] MEDS: acetaminophen 500 mg Tablet 1000 MG PO ×2 (12:40→19:05)
--- NOTE | 2024-02-28 12:56 | PM.OPHPUD ---
Labor & Delivery H&P Update Date of Procedure: February 28, 2024 Date H&P Performed: 02/22/24 Changes to previous documentation: 28yo female admitted to LD after being seen in ER with elevated BP, WILEY and RUQ pain 5 days . Pt reports seeing dark spots floating in her eyes, she denies CP, SOB or Excessive bleeding. Pt is S/P induced d/t PIH on 02/22/24. Pt BP during labor and required no MgSO4 or Hypertensive Meds, report received from Dr. Gonzáles. Pt c/o not feeling well since her discharge. Pt requested Hydroxyzine to Nursing staff for Anxiety, but has not been on meds daily. VSS, Afebrile Head- Normocephalic H-RRR no Murmur L- CTA bilat Abd- soft, No ttp Ext- no edema, no Homans sign, DTR Brisk +3/4, neg clonus Admission Diagnosis: PreEclampsia Anxiety Asymptomatic Anemia Hx of Hemorrhage Primary indication for procedure: Readmission for PreEclampsia with symptoms Planned procedure: Will treat with Magnesium bolus, then 2gm/hr x 12 hr or longer if BP severe. Start Nifedipine 10mg TID, and increase dose if needed. Restart pt on Fluoxetine 40mg/d Tylenol ES 2 po q 6-8 hr for WILEY. Owen for Urine output
[2024-02-28] MEDS: NIFEdipine 10 mg Capsule PO ×2 (13:01→21:09)
--- NOTE | 2024-02-28 14:51 | PC.NURSE ---
Orders from Dr. Rubio to turn magnesium down to 25ml/hr and mag level once a shift. Call if mag level is critically high but not to call if mag level is critically low.
[2024-02-28 18:04] LABS: Magnesium Level (OB Only) 5.4 mg/dL (5.0-7.5)
[2024-02-29] VITALS (62 sets, daily range): BP systolic 114–138; BP diastolic 68–82; PULSE 54–107; O2SAT 93–100
[2024-02-29] MEDS: acetaminophen 500 mg Tablet 1000 MG PO ×2 (01:07→08:16)
[2024-02-29] MEDS: NIFEdipine 10 mg Capsule PO (05:12)
--- NOTE | 2024-02-29 06:08 | PC.NURSE ---
Patient ambulated ramírez x2 with Bronwyn QURESHI at 0500.
[2024-02-29] MEDS: fluoxetine 20 mg Capsule 40 MG PO (08:16)
--- NOTE | 2024-02-29 10:17 | PM.OBGYDC ---
Discharge Providers [employer] Date of Admission: 02/28/24 10:04 Date of Discharge: 02/29/24 Attending Provider at Admission: Cathy Rubio DO Attending Provider at Discharge: Cathy Rubio DO Primary [employer]ER: Dr. Gonzáles Primary Care Provider: Courtney Gonzáles DO Diagnoses at Discharge Discharge Diagnosis (1) Spontaneous vaginal delivery: Status: Acute (2) Pre-eclampsia during in third trimester, antepartum: Details from hospital stay: 28-year-old female G2, P2 s/p with preeclampsia in her third trimester. During labor patient's blood pressure required no hypertensive medications. Patient was discharged to home and returned 5 days with elevated blood pressure, complaints of headache and upper abdominal pain. Patient was admitted to the floor and treated with magnesium sulfate bolus and 2 g maintenance, which was weaned over 12-hours with the addition of nifedipine 10 mg 3 times daily. Patient's blood pressure responded to the medication regimen with BPs 120-130/70s. Patient continues to have a mild headache but denies blurred vision, shortness of breath, chest pain, or abdominal pain. Patient's lab was reviewed?CBC indicates acute blood loss anemia, CMP essentially normal Protein creatinine ratio is elevated at 50. Patient's exam?unremarkable with DTRs +2/4 bilaterally no edema negative Homans' sign. Status: Acute (3) hemorrhage: Status: Acute (4) Anemia: Status: Acute Other Information Additional DC diagnoses/information: preeclampsia with severe symptoms?resolving Reason for Visit Reason for Visit: abd pain (had a baby x 5 days ago) Hospital Course Hospital Course See above Physical Exam Const: COMMON NORMALS: patient oriented x3 Resp: COMMON NORMALS: normal respiratory effort and clear to auscultation bilaterally AUSCULTATION: clear to auscultation bilaterally Cardio: COMMON NORMALS: regular rate and regular rhythm RATE: regular rate RHYTHM: regular rhythm : COMMON NORMALS: Yes no CVA tenderness BLADDER/KIDNEY EXAM: Yes no CVA tenderness Back/Pelvis: COMMON NORMALS: no CVA tenderness Extremity: COMMON NORMALS: normal to inspection, no clubbing, cyanosis or edema, no calf tenderness and no pedal edema Neuro: COMMON NORMALS: patient oriented x3, CN's II-XII intact bilaterally, moves all extremities and deep tendon reflexes 2+ bilaterally Urinary Catheter Management: Owen: Cath Placed During This Visit: yes, but has since been removed by the nurse Reason for Continuing Indwelling Catheter: Decision to DC Catheter Urinary Catheter Date of Insertion: 02/28/24 Urinary Catheter Time of Insertion: 10:40 Date Urinary Catheter Removed: 02/29/24 Time Urinary Catheter Discontinued: 05:38 History History History 2 Term 2 0 Miscarriages/Ectopic 0 Living Children 2 Discharge Data Studies Completed and Pending Completed Studies During Hospitalization Category [place] [address] Stat Ultrasound 02/28/24 09:12 Completed Pending at discharge Category Date Time Status Magnesium Level (OB Only) Routine Lab 02/29/24 06:07 Ordered Radiology Impressions Liver Ultrasound 02/28/24 09:12 IMPRESSION: No acute findings. Laboratory Results WBC 12.24 10^3/uL (3.29-11.43) H 02/28/24 09:16 RBC 3.64 10^6/uL (3.85-5.65) L 02/28/24 09:16 Hgb 8.40 g/dL (11.27-16.99) L 02/28/24 09:16 Hct 28.8 % (36-47) L 02/28/24 09:16 MCV 79.1 fl (85-98) L 02/28/24 09:16 MCH 23.1 pg (27-33) L 02/28/24 09:16 MCHC 29.2 g/dL (30-55) L 02/28/24 09:16 RDW 18.5 % (12.1-15.1) H 02/28/24 09:16 Plt Count 459 10^3/cmm (157-399) H 02/28/24 09:16 MPV 10.2 fL (7.4-10.4) 02/28/24 09:16 Neut % (Auto) 65.9 % 02/28/24 09:16 Lymph % (Auto) 26.9 % 02/28/24 09:16 Childress % (Auto) 5.1 % 02/28/24 09:16 Eos % (Auto) 1.1 % 02/28/24 09:16 Baso % (Auto) 0.4 % 02/28/24 09:16 Neut # (Auto) 8.08 10^3/uL (1.8-7.7) H 02/28/24 09:16 Lymph # (Auto) 3.3 10^3/uL (0.8-4.8) 02/28/24 09:16 Childress # (Auto) 0.6 10^3/uL (0.2-0.9) 02/28/24 09:16 Eos # (Auto) 0.1 10^3/uL (0.0-0.8) 02/28/24 09:16 Baso # (Auto) 0.1 10^3/uL (0.0-0.1) 02/28/24 09:16 Nucleated RBC % (auto) 0 % 02/28/24 09:16 Nucleated RBCs # 0.0 /100WBC 02/28/24 09:16 Sodium 139 mmol/L (136-145) 02/28/24 09:16 Potassium 4.0 mmol/L (3.5-5.1) 02/28/24 09:16 Chloride 104 mmol/L (98-107) 02/28/24 09:16 Carbon Dioxide 23 mmol/L (22-29) 02/28/24 09:16 Anion Gap 16.0 (5-19) 02/28/24 09:16 BUN 11 mg/dL (6-20) 02/28/24 09:16 Creatinine 0.8 mg/dL (0.5-0.9) 02/28/24 09:16 GFR Calculation 86.7 mL/min (90-130) L 02/28/24 09:16 Glucose 94 mg/dL (65-115) 02/28/24 09:16 Calculated Osmolality 287 mOsm/kg (285-295) 02/28/24 09:16 Uric Acid 5.5 mg/dL (2.4-5.7) 02/28/24 09:16 Calcium 9.1 mg/dL (8.5-10.5) 02/28/24 09:16 Magnesium 5.4 mg/dL (5.0-7.5) 02/28/24 17:25 Total Bilirubin 0.3 mg/dL (0.15-1.2) 02/28/24 09:16 AST 22 U/L (0-32) 02/28/24 09:16 ALT 27 U/L (0-33) 02/28/24 09:16 Alkaline Phosphatase 161 U/L (35-105) H 02/28/24 09:16 Total Protein 7.0 g/dL (6.6-8.7) 02/28/24 09:16 Albumin 3.7 g/dL (3.5-5.2) 02/28/24 09:16 Globulin 3.3 g/dL (1.3-4.6) 02/28/24 09:16 Urine Color Yellow (Yellow) 02/28/24 10:37 Urine Appearance Clear (CLEAR) 02/28/24 10:37 Urine pH 7.5 (5-7) 02/28/24 10:37 Ur Specific Solomon 1.006 (1.005-1.030) 02/28/24 10:37 Urine Protein Negative (Negative) 02/28/24 10:37 Urine Glucose (UA) Negative (Normal) 02/28/24 10:37 Urine Ketones Negative (Negative) 02/28/24 10:37 Urine Blood Negative (Negative) 02/28/24 10:37 Urine Nitrate Negative (Negative) 02/28/24 10:37 Urine Bilirubin Negative (Negative) 02/28/24 10:37 Urine Urobilinogen 0.2 mg/dL (Negative) 02/28/24 10:37 Ur Leukocyte Esterase Negative (Negative) 02/28/24 10:37 Urine RBC 0-4 /hpf (0-2) H 02/28/24 10:37 Urine WBC 0-4 /hpf (0-5) H 02/28/24 10:37 Ur Squamous Epith Cells 0-4 /hpf (0-5) H 02/28/24 10:37 Amorphous Sediment Not Reportable 02/28/24 10:37 Urine Bacteria Trace /hpf (NONE) 02/28/24 10:37 Ur Random Microalbumin 1 ug/dL (0-20) 02/28/24 10:37 Urine Creatinine 20 mg/dL (28-217) L 02/28/24 10:37 Microalb/Creat Ratio 50 mg/dL (0-20) H 02/28/24 10:37 Vitals Last Vital Signs Temp 98.2 F 02/28/24 08:58 Pulse 103 H 02/29/24 09:23 Resp 16 02/28/24 10:35 BP 127/70 02/29/24 09:23 Pulse Ox 99 02/29/24 04:21 O2 Del Method Room Air 02/28/24 11:16 Results Labs OB ([facility] [place]): Obstetrics US 02/09/24 Obstetrics US/Biophysical Profile 02/16/24 Blood Type A Positive 02/22/24 Antibody Screen Negative 02/22/24 Hct 28.8 % (36-47) L 02/28/24 Hgb 8.40 g/dL (11.27-16.99) L 02/28/24 Rho(D) Type Rh positive 02/22/24 Plt Count 459 10^3/cmm (157-399) H 02/28/24 Hep Bs Antigen Non-reactive (Nonreactive) 07/01/22 Hepatitis C Antibody Non-reactive (Nonreactive) 07/01/22 Rubella IgG Antibody 238.8 IU/mL (0.0-10.0) H 07/01/22 RPR Nonreactive (Nonreactive) 07/01/22 HIV 1&2 Ab & HIV 1 Ag Non-reactive (Non-Reactiv) 07/01/22 TSH 0.21 uIU/mL (0.27-4.20) L 07/01/22 Cystic Fibrosis Screen Negative 07/15/22 Gest Glucose Tolerance 132 mg/dL (70-139) 11/17/22 Uric Acid 5.5 mg/dL (2.4-5.7) 02/28/24 HCG, Qual Positive (Negative) H 06/16/22 Urine Opiates Screen Negative ng/mL (Negative) 04/27/23 Ur Barbiturates Screen Negative ng/mL (Negative) 04/27/23 Ur Phencyclidine Scrn Negative ng/mL (Negative) 04/27/23 Ur Amphetamines Screen Negative ng/mL (Negative) 04/27/23 U Benzodiazepines Scrn Negative ng/mL (Negative) 04/27/23 Urine Cocaine Screen Negative ng/mL (Negative) 04/27/23 U Marijuana (THC) Screen Negative ng/mL (Negative) 04/27/23 Micro Urine Specimen 02/22/24 Pap Smear Interpret See note 07/14/22 Discharge Plan Discharge Patient Disposition: Home Condition: Stable Prescriptions: No Action fluoxetine [Prozac] 40 mg capsule 40 mg PO DAILY Qty: 30 2RF 1 tab PO DAILY ibuprofen 800 mg Tablet 800 mg PO TID Qty: 90 0RF docusate sodium 100 mg Capsule 100 mg PO BID Qty: 60 0RF ferrous sulfate 325 mg (65 mg iron) Tablet,Delayed Release (Dr/Ec) 325 mg PO BREAKFAST Qty: 90 0RF Referrals: Courtney Gonzáles DO [Primary Care Provider] - Discharge Diet: Regular Discharge Activity: Increase activity as tolerated Patient Instructions: Opioid Safety Assessment: 1. Status post x 6 days 2. preeclampsia with severe symptoms?resolving 3. Asymptomatic anemia 4. History of anxiety Plan of Treatment: 1. Discharge patient to home 2. Rx called in for Procardia 10 mg 1 p.o. 3 times daily x 2 days 3. Patient to follow-up with Dr. Gonzáles in 1 week. 4. Patient to resume her fluoxetine nightly as reviewed. Discharge Attestations [employer] Time Spent in Discharge Care*: less than 30 min Coding Level of Care Code Acute Code for Chg Fwd Diagnoses Spontaneous vaginal delivery O80 Pre-eclampsia during in third trimester, antepartum O14.93 hemorrhage O72.1 Anemia D64.9
--- NOTE | 2024-02-29 10:20 | PC.NURSE ---
Orders given from Dr. Rubio to call in prescription for procardia 10mg q8hr PO for 2 days.
== END 2024-02-29 12:55 | disposition home or self-care (01) | DRG 776 ==
LOC: ER 09:33 → OBGYN 10:46
PROVIDERS: Admitting Provider Obstetrics & Gynecology; Emergency Provider Family Medicine; PCP Family Medicine; Visit Provider Obstetrics & Gynecology
DX: O14.95 Unspecified pre-eclampsia, complicating the puerperium (principal); F41.0 Panic disorder [episodic paroxysmal anxiety]; F41.1 Generalized anxiety disorder; R74.8 Abnormal levels of other serum enzymes; Z82.3 Family history of stroke; Z83.3 Family history of diabetes mellitus; Z82.49 Family history of ischemic heart disease and other diseases of the circulatory system; Z80.3 Family history of malignant neoplasm of breast
CPT/HCPCS: 51702; 76705; 80053; 81001; 82044; 83735; 84550; 85025; 96365; 96375; 99285; J0360; J3475; J3490; J7121

== ENCOUNTER 2025-02-22 09:29 | Emergency (ER) | payer BC, MEDICAID, SELFPAY ==
[2025-02-22 09:38] VITALS: BP 135/100; PULSE 120; RESP 16; TEMP 36.6; O2SAT 99; BMI 26.3
--- NOTE | 2025-02-22 09:43 | ED_ITS ---
HPI - Abdominal Pain 2 General: Chief Complaint: Abdominal Pain Stated Complaint: adb pain, n/v Time Seen by Provider: 02/22/25 09:40 History of Present Illness: Is a 29-year-old female with a history of anxiety, and anemia who presents to the emergency room with right upper quadrant abdominal pain. She complains of a dull pain in her right upper quadrant. Nausea. Says she is currently menstruating. She says that her primary provider had told her that her liver enzymes might be elevated. She has not been vomiting. She says her stools have been light-colored. Her urine is dark. No fevers. No altered mental status. Related Data Home Medications ?Medication ?Instructions ?Recorded ?Confirmed fluticasone propionate 50 1 - 2 spray intranasal DAILY PRN 02/22/25 02/22/25 mcg/actuation nasal allergies spray,suspension norgestimate 0.25 mg-ethinyl 1 tab PO DAILY 02/22/25 1 04/25/24 estradiol 0.035 mg tablet (Sprintec (28)) vit no.95-ferrous 1 tab PO DAILY 02/22/2506/14 fumarate 28 mg-folic acid 800 mcg tablet () Previous Rx's ?Medication ?Instructions ?Recorded ferrous sulfate 325 mg (65 mg 325 mg PO BREAKFAST #90 tabs 02/24/24 iron) tablet,delayed release buspirone 10 mg tablet 10 mg PO TID PRN sleep or an xiety 01/10/25 #90 tabs clonazepam 0.5 mg tablet 0.5 mg PO DAILY PRN anxiety #30 01/10/25 tabs fluoxetine 40 mg capsule 40 mg PO DAILY #30 caps 12/22 04/16 hydroxyzine pamoate 50 mg capsule 50 mg PO BID PRN sle ep or anxiety 01/10/25 30 days #60 caps famotidine 40 mg tablet 40 mg PO DAILY #14 tabs 06/14 ondansetron 8 mg disintegrating 8 mg PO Q6H #14 tabs 1 04/25/24 tablet tramadol 50 mg tablet 50 mg PO Q8H PRN pain #10 ta bs 02/22/25 Allergies Allergy/AdvReac Type Severity Reaction Status Date / Time No Known Allergies Allergy Verified 02/22/25 09:44 Review of Systems 2 Narrative: Constitutional symptoms: Negative except as documented in HPI. Skin symptoms: Negative except as documented in HPI. Eye symptoms: Negative except as documented in HPI. ENMT symptoms: Negative except as documented in HPI. Respiratory symptoms: Negative except as documented in HPI. Cardiovascular symptoms: Negative except as documented in HPI. Gastrointestinal symptoms: Negative except as documented in HPI. Genitourinary symptoms: Negative except as documented in HPI. Musculoskeletal symptoms: Negative except as documented in HPI. Neurologic symptoms: Negative except as documented in HPI. Psychiatric symptoms: Negative except as documented in HPI. Endocrine symptoms: Negative except as documented in HPI. PFSH ED 2 PFSH: Medical History (Updated 02/22/25 @ 12:33 by Jazzy Redman MD) Panic disorder Generalized anxiety disorder Psychiatric care Surgical History (Updated 03/01/24 @ 00:00 by DEEDEE Rice) [place] teeth extracted Family History Grandmother Breast cancer Maternal Hypertension Family/Other Breast cancer Maternal aunts, 3 Grandfather , Maternal Stroke Hypertension Grandfather Diabetes Paternal Grandmother , Paternal Diabetes Mother Hypertension Father Hypertension Denies family history of Cervical cancer Colon cancer Ovarian cancer Uterine cancer Thyroid disease Social History Smoking and tobacco/nicotine status: never used tobacco/nicotine Physical Exam 2 Narrative: EXAM NARRATIVE: General: Alert, no acute distress. Skin: Warm, dry. Head: Normocephalic, atraumatic. Neck: Supple, trachea midline. Eye: Extraocular movements are intact. Ears, nose, mouth and throat: mucosa moist. Cardiovascular: Regular, Normal peripheral perfusion. Respiratory: Lungs are clear to auscultation, respirations are non-labored, breath sounds are equal, Symmetrical chest wall expansion. Gastrointestinal: Soft, some tenderness to palpation in the right upper quadrant, Non distended Musculoskeletal: Normal ROM, no deformity. Neurological: Alert and oriented, No focal neurological deficit observed. Psychiatric: Cooperative, appropriate mood & affect. Course 2 Vital Signs: Vital signs: Vital Signs Temperature 97.8 F 02/22/25 09:38 Pulse Rate 100 02/22/25 11:26 Respiratory Rate 18 02/22/25 10:35 Blood Pressure 128/86 02/22/25 10:35 Pulse Oximetry 100 02/22/25 11:26 Oxygen Delivery Me thod Room Air 02/22/25 11:26 MDM - Abdominal Pain Medical Decision Making Medical decision making Patient's reason for coming to the emergency room: Right upper quadrant abdominal pain Social determinants: Unemployed. Accompanied by her mother I reviewed the patient's medical record. Patient says she follows at a community clinic elsewhere but she has had some visits here in the past I reviewed the patient's current home meds Reviewed prescription monitoring program and patient takes clonazepam daily as needed. This is chronic Alternate historians: None Differential diagnosis for patient presenting with right upper quadrant abdominal pain including but not limited to and based on the above HPI, review of systems and physical exam: Cholelithiasis or cholecystitis. Hepatitis. Diverticulitis. Constipation. Ureterolithiasis. Urinary tract infection. Appendicitis. colitis. small bowel obstruction. crohn's flare. pancreatitis. gastritis. peptic ulcer. Aortic disection. Workup including imaging and lab work replaced based on the above differential, history and exam to evaluate differential diagnosis CT of the abdomen pelvis with contrast: Normal appendix. Ovarian cyst. Fatty liver. Hiatal hernia. This was reviewed and interpreted by myself the emergency room physician. I also reviewed the radiology report. Lab Review: Laboratory results were reviewed and interpreted by myself the emergency room physician. No leukocytosis. No anemia. No renal failure. Liver enzymes are normal. She does have blood in her urine but she is having her menstruation. Assessment of risk: Level of risk: Low risk patient. Hospitalization considerations: No consideration of hospitalization Reexamination: Patient remained stable. No increased work of breathing. No altered mental status. No focal motor deficits. Assessment and plan: Abdominal pain - Discharged home - Discussed plan with patient. Answered any questions. - Evaluation and treatment of this problem were appropriate in the emergency setting. Lab Data 02/22/25 09:59 02/22/25 09:59 Labs/Radiology: Radiology Impressions Abdomen/Pelvis CT 02/22/25 09:55 IMPRESSION: 1. Normal appendix. 2. LEFT ovarian cyst measuring 1.8 x 3.1 cm. 3. Fatty liver. Mild hepatomegaly. 4. Small esophageal hiatal hernia. T 5. Tiny fat-containing umbilical hernia. Laboratory Results WBC 7.47 10^3/uL (3.29-11.43) 02/22/25 09:59 RBC 4.97 10^6/uL (3.85-5.65) 02/22/25 09:59 Hgb 14.10 g/dL (11.27-16.99) 02/22/25 09:59 Hct 43.2 % (36-47) 02/22/25 09:59 MCV 86.9 fl (85-98) 02/22/25 09:59 MCH 28.4 pg (27-33) 02/22/25 09:59 MCHC 32.6 g/dL (30-55) 02/22/25 09:59 RDW 13.2 % (12.1-15.1) 02/22/25 09:59 Plt Count 422 10^3/cmm (157-399) H 02/22/25 09:59 MPV 10.5 fL (7.4-10.4) H 02/22/25 09:59 Neut % (Auto) 59.4 % 02/22/25 09:59 Lymph % (Auto) 32.3 % 02/22/25 09:59 Gillespie % (Auto) 6.3 % 02/22/25 09:59 Eos % (Auto) 1.1 % 02/22/25 09:59 Baso % (Auto) 0.8 % 02/22/25 09:59 Neut # (Auto) 4.44 10^3/uL (1.8-7.7) 02/22/25 09:59 Lymph # (Auto) 2.4 10^3/uL (0.8-4.8) 02/22/25 09:59 Gillespie # (Auto) 0.5 10^3/uL (0.2-0.9) 02/22/25 09:59 Eos # (Auto) 0.1 10^3/uL (0.0-0.8) 02/22/25 09:59 Baso # (Auto) 0.1 10^3/uL (0.0-0.1) 02/22/25 09:59 Nucleated RBC % (auto) 0 % 02/22/25 09:59 Nucleated RBCs # 0.0 /100WBC 02/22/25 09:59 Sodium 140 mmol/L (136-145) 02/22/25 09:59 Potassium 4.0 mmol/L (3.5-5.1) 02/22/25 09:59 Chloride 104 mmol/L (98-107) 02/22/25 09:59 Carbon Dioxide 25 mmol/L (22-29) 02/22/25 09:59 Anion Gap 15.0 (5-19) 02/22/25 09:59 BUN 7 mg/dL (6-20) 02/22/25 09:59 Creatinine 0.7 mg/dL (0.5-0.9) 02/22/25 09:59 GFR Calculation 100.4 mL/min (90-130) 02/22/25 09:59 Glucose 108 mg/dL (65-115) 02/22/25 09:59 Calculated Osmolality 289 mOsm/kg (285-295) 02/22/25 09:59 Lactic Acid 1.0 mmol/L (0.5-2.2) 02/22/25 09:59 Calcium 9.0 mg/dL (8.5-10.5) 02/22/25 09:59 Total Bilirubin 0.3 mg/dL (0.15-1.2) 02/22/25 09:59 AST 12 U/L (0-32) 02/22/25 09:59 ALT 10 U/L (0-33) 02/22/25 09:59 Alkaline Phosphatase 145 U/L (35-105) H 02/22/25 09:59 C-Reactive Protein 3.7 mg/L (0.0-4.9) 02/22/25 09:59 Total Protein 8.0 g/dL (6.6-8.7) 02/22/25 09:59 Albumin 4.5 g/dL (3.5-5.2) 02/22/25 09:59 Globulin 3.5 g/dL (1.3-4.6) 02/22/25 09:59 Lipase 21 U/L (13-60) 02/22/25 09:59 HCG, Qual Negative (Negative) 02/22/25 09:59 Urine Color [place] (Yellow) A 02/22/25 10:15 Urine Appearance Clear (CLEAR) 02/22/25 10:15 Urine pH 5.5 (5-7) 02/22/25 10:15 Ur Specific [place] 1.006 (1.005-1.030) 02/22/25 10:15 Urine Protein 1+ (Negative) A 02/22/25 10:15 Urine Glucose (UA) Negative (Normal) 02/22/25 10:15 Urine Ketones Negative (Negative) 02/22/25 10:15 Urine Blood 3+ (Negative) A 02/22/25 10:15 Urine Nitrate Negative (Negative) 02/22/25 10:15 Urine Bilirubin Negative (Negative) 02/22/25 10:15 Urine Urobilinogen 0.2 mg/dL (Negative) 02/22/25 10:15 Ur Leukocyte Esterase Negative (Negative) 02/22/25 10:15 Urine RBC >100 /hpf (0-2) H 02/22/25 10:15 Urine WBC 0-5 /hpf (0-5) 02/22/25 10:15 Ur Squamous Epith Cells 0-5 /hpf (0-5) 02/22/25 10:15 Amorphous Sediment Not Reportable 02/22/25 10:15 Urine Bacteria None seen /hpf (NONE) 02/22/25 10:15 Hyaline Casts 0-4 /lpf H 02/22/25 10:15 All radiology interpretation(s) finalized by discharge Discharge Plan Discharge Patient Disposition: Home Clinical Impression: Abdominal pain Condition: Stable Prescriptions: New tramadol 50 mg tablet 50 mg PO Q8H PRN (Reason: pain) Qty: 10 0RF ondansetron 8 mg tablet,disintegrating 8 mg PO Q6H Qty: 14 0RF Rx Instructions: Take 1/2-1 tab every 6 hours as needed for nausea and vomiting famotidine 40 mg tablet 40 mg PO DAILY Qty: 14 0RF No Action clonazepam 0.5 mg tablet 0.5 mg PO DAILY PRN (Reason: anxiety) Qty: 30 4RF fluoxetine 40 mg capsule 40 mg PO DAILY Qty: 30 2RF hydroxyzine pamoate 50 mg capsule 50 mg PO BID PRN (Reason: sleep or anxiety) 30 Days Qty: 60 3RF buspirone 10 mg tablet 10 mg PO TID PRN (Reason: sleep or anxiety) Qty: 90 3RF ferrous sulfate 325 mg (65 mg iron) Tablet,Delayed Release (Dr/Ec) 325 mg PO BREAKFAST Qty: 90 0RF norgestimate-ethinyl estradiol [Sprintec (28)] 0.25-0.035 mg tablet 1 tab PO DAILY fluticasone propionate 50 mcg/actuation spray,suspension 1 - 2 spray INTRANASAL DAILY PRN (Reason: allergies) PNV no.95-ferrous fumarate-FA [] 28 mg iron- 800 mcg Tablet 1 tab PO DAILY Discharge Orders: Discharge ED (Routine); Ordered 02/22/25 Ordered By: Jazzy Redman Referrals: Courtney Gonzáles DO [Primary Care Provider, WEB APPLICATIONS ARCHITECT] Patient Instructions: Abdominal Pain (ED), Opioid Safety, Pain Management, Patient Portal & Dragan Instructions Activity Restrictions/Additional Instructions: Thank you for choosing [facility] for your healthcare needs today. You have been screened and evaluated and felt safe for discharge. Health conditions do change or evolve sometimes and as such it is important that you follow up with your Primary Doctor to be re checked, 3-5 days is a general good time frame for follow up. You are always welcome to return to the ED for re assessment if your symptoms are worsening or you have new concerns Print Language: Portuguese Coding Level of Care Code ED [employer] for Cely Steve
--- NOTE | 2025-02-22 09:55 | CT_ITS ---
WS: [id number] CT ABDOMEN PELVIS TECHNIQUE: Contrast-enhanced CT of the abdomen and pelvis with coronal and sagittal reformatted images. CLINICAL INFORMATION: Abdominal pain COMPARISON: None. DLP: 1143.[address] scans at [facility] use at least one of these dose optimization techniques: automated exposure control; mA and/or kV adjustment per patient size (includes targeted exams where dose is matched to clinical indication); or iterative reconstruction. FINDINGS: Hepatic steatosis. Mild hepatomegaly. Gallbladder appears normal. Normal portal vein and splenic vein. Tiny esophageal hiatal hernia. Normal caliber abdominal aorta. Celiac and SMA are patent. Adrenal glands are normal. Normal renal parenchymal enhancement. Normal sigmoid colon. No evidence of small or large bowel obstruction. Normal appendix. No evidence of acute appendicitis. No hydronephrosis in either kidney. LEFT ovarian cyst measuring 3.1 x 1.8 cm. Urine distended bladder. No other acute findings. CT/CT abdomen pelvis w con* [id number] IMPRESSION: 1. Normal appendix. 2. LEFT ovarian cyst measuring 1.8 x 3.1 cm. 3. Fatty liver. Mild hepatomegaly. 4. Small esophageal hiatal hernia. T 5. Tiny fat-containing umbilical hernia.
--- OUTSIDE RECORDS SUMMARY | 2025-02-22 10:01 | XMS_ITS | Data Portability ---
Author Organization [facility], [facility], [facility] Address [address] [place] [address] Assessment No assessment recorded. Plan of Treatment Reminders Order Date Submit Date Provider Last Modified By Organization Details Last Modified Time Details Appointments None recorded. Lab None recorded. Referral None recorded. Procedures None recorded. Surgeries None recorded. Imaging US, obstetric, 1st trimester [address] ([facility]), [address] [place] [address], [phone], 4 09:22:36 Medication Orders None recorded. Patient TargetsNo targets recorded. Patient InstructionsNo instructions recorded. Reason for Referral None Reported. Problems Name Problem SNOMED Code Status Onset Date Resolution Date Notes Provider Name and Address Organization Details Recorded Time Mixed anxiety and depressive disorder 287671628 Active [facility], Hemal 4 15:22:40 31547646 Active 024 [facility], L[facility]uylerL[facility]erva 4 15:24:26 Problem Notes None recorded. Medical Equipment None Reported. Allergies No known drug allergies Medications Name Sig Start Date Stop Date Status Note LastModified by Organization Details LastModified Time fluoxetine 40 mg capsule TAKE 1 CAPSULE BY MOUTH ONCE DAILY active Meme gaitan- ross pt Not Available Not Available Not Available Pepcid 20 mg tablet Take 1 tablet twice a day by oral route. active Not Available Not Available No t Available calcium active Not Available Not Avail able Not Available hydroxyzine HCl active Not Available Not Available Not Available active Not Available Not Avai lable Not Available Bhupinder Fe 1.5/30 (28) 1.5 mg-30 mcg (21)/75 mg (7) tablet TAKE 1 TABLET BY MOUTH ONCE DAILY 07/12 completed Not Available Not Available Not Available Vitals Date Recorded Body weight Body mass index (BMI) Body height Body temperature Oxygen saturation Heart rate Systolic And Diastolic Provider Name and Address Organization Details Last Updated DateTime 4 54345.1 1 g 28.1 kg/m2 165.1 cm 97.8 [degF] 99 % 94 /min 138/80 mm[Hg] [facility] 4 15:18:33 Social History None recorded. Functional Status Question Answer Note LastModified by Organizat ion Details LastModified Time Do you use any illicit or recreational drugs? No [email or web address] Information not available 07/13/2023 What is your level of alcohol consumption? None [email or web address] Information not available 07/13/2023 Mental Status None recorded. Family History Relationship Description Onset Age of this Age Resolved Age Notes LastModified by Organization Details LastModified Time Maternal Grandmother Malignant neoplasm of breast [email or web address] Not available 2023 15:22:06 Medical History Condition Response Coronary Artery Disease N Other N Gout N Kidney Stones N Blood Diseases N Hyperthyroidism N Breast Cancer N Blood Transfusion N Hypothyroidism N Lung Disease N COPD N Depression Y Defects or Inherited Disease N Developmental or Behavioral Disorders N Breast Problem N Difficulty Swallowing N Anesthesia Complications N Meniere's disease N Anxiety Disorder Y Muscle, Joint, or Bone Problems N Vision or Eye Problems N Arthritis N Infertility N Polyps N Cancer N Stroke N Varicosities N Endometriosis N Bladder or Kidney Problems N High Cholesterol N Liver Disease N Fibromyalgia N Headaches N Kidney Disease N Allergies/Hayfever N Heart Problems N Ear or Hearing Problems N Hospitalizations N Thyroid Problems N GI Problems N ADD/ADHD N Skin Problems N Eating Disorder N Anemia N Constipation N Mental Illness N Ovarian Cancer N Diabetes N Bedwetting N Seizures/Epilepsy N Tuberculosis N Eczema N Diverticulitis N Abuse/Domestic Violence N Asthma N Reflux/GERD N Hepatitis N Heart Disease N Pulmonary Embolism N Chronic Ear Infections N Pre-Eclampsia N Hypertension N Chicken Pox N Autism Spectrum Disorder (ASD) N Osteoporosis N Thrombophilias N Gynecological History Statement/Question Response Abnormal Pap N Date of Last Pap Smear Date of LMP 06/06/2023 LMP Definite Obstetrics History GPAL:G 2 P 1 0 0 1 Type Value Full Term 1 Living 1 Total 2 Past Encounters Encounter ID Performer Location Encounter Start Date Encounter Closed Date Diagnosis/Indication Diagnosis SNOMED-CT Code Diagnosis ICD10 Code Diagnosis IMO Codes Diagnosis Note [id number] Larisa Kuhn MD [facility] ([facility]) [address] [place] [address] 07/13/2023 14:55:19 07/13/2023 16:30:21 Gestation period, 5 weeks 39449915 Z3A.01 I reviewed what to avoid in and the plan of care. Normal pre gnancy in multigravida [id number] 59617 Z34.81 Health Concerns Section Related Observation LastModified by Organization Detai ls LastModified Time None Recorded Concern Status LastModified by Organization Details LastModified Time None Recorded Advance Directives Directive None Recorded Payers Insurance Date Sequence Insurance Name Policy Number Policy Javier Covered Member ID Javier Member ID Guarantor Name 07/20/2023 1 [employer] [place] (MEDICA[place] REPLACEMENT - HMO) [id number] Meredith Mercado [id number] Meredith Mercado Notes Date Note Type Note Provider Name and Address Organization Details Recorded Time 07/13/19 24 text/htm l jr ob routineReported by PatientHPIFor associated symptoms, patient reportsnauseaandemesisbut reportsno abdominal pain,no cramping,no bleeding,no vaginal discharge,no dysuria,no frequency,no urgency,no constipation,no diarrhea/loose stool,no edema,no headache, andno dizziness. Larisa Kuhn MD [address] [place] [address], [phone], [facility] 07/20/2023 12:24:30 OBGyn Episode Ob Episode Information Episode Created Date Number of Fetuses Patient Bloodtype Patient rh Status Prepregnancy Weight lbs Domestic Partner Domestic Partner Phone Father Name Bathhouse Keeper Status 07/13/19 24 1 CLOSED Fetus Data First Name Last Name Admitted to NICU Weight (g) Sex Living Outcome Pediatric Complications Fetus ID Race Codes Race Delivery Type 3401.94 F [id number] VAGINAL Rey Calculation Initial Rey Date Initial Exam Date Initial Exam Provider Initial Ultrasound Date Last Menstrual Period Date Ultra Sound Weeks Gestation 0 Eighteen To Twenty Week Rey Update Ultra Sound Date Fundal Height At Umbil Quickening Date Ultra Sound Latest Weeks Gestation Final Rey Confirmed By Final Rey Confirmed Date Final Rey Date Ultra Sound Latest Days Gestation 0 0 Menstrual History Last Menstrual Date Menses Monthly On Bcp Conception Prior Menses Frequency Hcg Plus Date Menarche Onset Age Delivery Information Delivery Date Delivery Type Labor Anesthesia Weeks Gestation Incision Type Labor Labor Length Hrs Delivered By Post Complications Tubal Sterilization Discharge Date Comments 3 Regional- idural 38.4 o // hypertens ion towards the end of Discharge Information Feeding Method Contraceptive Method Maternal HG B and HCT Levels Ob Episode Information Episode Created Date Number of Fetuses Patient Bloodtype Patient rh Status Prepregnancy Weight lbs Domestic Partner Domestic Partner Phone Father Name Bathhouse Keeper Status 07/13/19 24 1 OPEN Fetus Data First Name Last Name Admitted to NICU Weight (g) Sex Living Outcome Pediatric Complications Fetus ID Race Codes Race Delivery Type [id number] Rey Calculation Initial Rey Date Initial Exam Date Initial Exam Provider Initial Ultrasound Date Last Menstrual Period Date Ultra Sound Weeks Gestation 03/12/2024 07/13/2023 06/06/2023 0 Eighteen To Twenty Week Rey Update Ultra Sound Date Fundal Height At Umbil Quickening Date Ultra Sound Latest Weeks Gestation Final Rey Confirmed By Final Rey Confirmed Date Final Rey Date Ultra Sound Latest Days Gestation 0 0 Pre-lexy Flowsheet Flowsheet Date 07/13/2023 Desai Score Blood Edema Fundus Height Fundus Units Glucose Ketones Leukocytes Nitrite Labor Signs Protein Cervic Dilation Cervic Effacement Cervic Station Type Weight in lbs Pre/Post Dialysis Refused With clothes [id number] BP Diastolic BP Location Tested BP Systolic BP Type 80 L arm 138 sitting Fetus Heart Rate Present Fetus Movement Comments Menstrual History Last Menstrual Date Menses Monthly On Bcp Conception Prior Menses Frequency Hcg Plus Date Menarche Onset Age 0306/06/2023 Genetic Screening And Infection History Question Response Note Patient's Age Will Be 35 Yea rs Or Older At Estimated Date of Delivery false Thalassemia (Divehi, Icelandic, Mediterranean, Or Background): MCV < 80 false Neural Tube Defect (Meningom yelocele, Spina Bifida, Or Anencephaly) false Congenital Heart Defect false Down Syndrome false Kris-Sachs (eg, Zoroastrian, Cajun, Albanian-Yemeni) f alse Jace Disease false Sickle Cell Disease Or Trait () false Hemophilia Or Other Blood Disorders false Muscular Dystrophy false Cystic Fibrosis false Caspar's Chorea false Intellectual Disability/Autism true A unts children have autism If Yes, Was Person Tested For Fragile X? false Other Inherited Genetic Or Chromosomal Disorder false Maternal Metabolic Disorder (eg, Type 1 Diabetes, PKU) false Patient Or Baby's Father Had A Child With Defects Not Listed Above false Recurrent Loss, Or A Stillbirth false Medications (including Suppl ements, Vitamins, Herbs, OTC Drugs), Illicit/Recreational Drugs, Alcohol false If Yes, Agent(s) And Strength/Dosage false Any Other Genetic History false Live With Someone With TB Or Exposed To TB false Patient Or Partner Has History Of Genital Herpes false Rash Or Viral Illness Since Last Menstrual Perio d false History Of STD, Gonorrhea, C hlamydia, HPV, Syphilis false Other Infection History false History of HIV false History of Hepatitis false Prior GBS-infected child false Hemoglobinopathy Or Carrier false Other Structural Defect false Recent Travel History Outside of Country false Mental Retardation/Autism false Delivery Information Delivery Date Delivery Type Labor Anesthesia Weeks Gestation Incision Type Labor Labor Length Hrs Delivered By Post Complications Tubal Sterilization Discharge Date Comments Discharge Information Feeding Method Contraceptive Method Maternal HG B and HCT Levels
[2025-02-22 10:05] LABS: Hematocrit 43.2 % (36-47); Hemoglobin 14.10 g/dL (11.27-16.99); Mean Corpuscular HGB Conc 32.6 g/dL (30-55); Mean Corpuscular Hemoglobin 28.4 pg (27-33); Mean Corpuscular Volume 86.9 fl (85-98); Nucleated Red Blood Cells % 0 %; Platelet Count 422 10^3/cmm (157-399); Red Blood Count 4.97 10^6/uL (3.85-5.65); White Blood Count 7.47 10^3/uL (3.29-11.43)
[2025-02-22 10:26] LABS: Lactic Sepsis W/Reflex 1.0 mmol/L (0.5-2.2)
[2025-02-22 10:27] LABS: Alanine Aminotransferase 10 U/L (0-33); Albumin Level 4.5 g/dL (3.5-5.2); Alkaline Phosphatase 145 U/L (35-105); Anion Gap 15.0 (5-19); Aspartate Amino Transferase 12 U/L (0-32); Blood Urea Nitrogen 7 mg/dL (6-20); Calcium 9.0 mg/dL (8.5-10.5); Carbon Dioxide 25 mmol/L (22-29); Chloride 104 mmol/L (98-107); Globulin 3.5 g/dL (1.3-4.6); Glucose 108 mg/dL (65-115); Lipase 21 U/L (13-60); Osmolality Calculated 289 mOsm/kg (285-295); Potassium 4.0 mmol/L (3.5-5.1); Sodium 140 mmol/L (136-145); Total Protein 8.0 g/dL (6.6-8.7)
[2025-02-22 10:27] LABS: Glucose Urine UA Negative (Normal); Nitrate Urine Negative (Negative); Specific Gravity, Urine 1.006 (1.005-1.030)
[2025-02-22 10:32] LABS: HCG, Serum Qual Negative (Negative)
[2025-02-22 10:35] VITALS: BP 128/86; PULSE 100; RESP 18; O2SAT 98
[2025-02-22] MEDS: iohexol 350 mg/mL 500 mL Btl (per mL) IV (10:50)
[2025-02-22 11:26] VITALS: PULSE 100; O2SAT 100
[2025-02-22 14:39] LABS: Hepatitis A Antibody IgM Non-Reactive (Nonreactive); Hepatitis B Surface Antigen Non-Reactive (Nonreactive)
== END 2025-02-22 12:49 | disposition home or self-care (01) ==
PROVIDERS: Emergency Provider Emergency Medicine; PCP Family Medicine
DX: R10.11 Right upper quadrant pain (principal)
CPT/HCPCS: 36415; 74177; 80053; 80074; 81001; 83605; 83690; 84703; 85025; 86140; 87086; 99285

== ENCOUNTER 2025-03-01 09:16 | Outpatient (CLI) | payer BC, MEDICAID, SELFPAY ==
--- NOTE | 2025-03-01 08:30 | NM_ITS ---
WS: [id number] NUCLEAR MEDICINE HIDA SCAN WITH GALLBLADDER EJECTION FRACTION HISTORY: RUQ PAIN COMPARISON: CT 03/21/2025 TECHNIQUE: The patient was intravenously injected with 7.8 mCi of TC99m Mebrofenin. Immediate imaging over the right upper quadrant was followed by 5 minute image and additional images for a total of 60 minutes. Normal uptake of radiotracer throughout the liver. Activity identified in the gallbladder at 20 minutes and well distended by 60 minutes. Activity in the proximal small bowel was seen by 50 minutes. Good washout of the radiotracer from the liver by 60 minutes. The patient then drank 8 ounces of Ensure Plus. Ejection fraction at 60 minutes was 91%. Normal GB ejection fraction is 35-75%. Post fatty meal symptoms: None. NM/NM hepatobiliary w phar* [id number] IMPRESSION: 1. Normal HIDA scan. 2. Normal gallbladder ejection fraction.
== END 2025-03-01 09:17 | disposition home or self-care (01) ==
LOC: RAD 09:18
PROVIDERS: PCP Nurse Practitioner Occupational Health; Visit Provider Nurse Practitioner Occupational Health
DX: R74.8 Abnormal levels of other serum enzymes (principal)
CPT/HCPCS: 78227; A9537